=== PATIENT | female | born 1985 | race Caucasian/White ===

== ENCOUNTER 2020-08-25 15:32 | Emergency (ER) | payer OTHER, SELFPAY ==
[2020-08-25 16:18] VITALS: BP 130/80; PULSE 90; RESP 16; O2SAT 100; BMI 24.0
--- NOTE | 2020-08-25 16:44 | ED.ABDPAIN ---
HPI - Abdominal Pain General Chief Complaint: Abdominal Pain Stated Complaint: Abdominal pain Time Seen by Provider: 08/25/20 16:44 Source: patient Mode of arrival: ambulatory Limitations: no limitations History of Present Illness HPI narrative: Patient complaining of epigastric pain with nausea for last 1 week try to takes Prilosec for last 2 days without any help denies any urinary complaints very anxious on arrival no pain in the right side MD elicited complaint: abdominal pain Pertinent past history: gastritis Onset (ago): week(s) (1) Pain Consistency: constant Location: epigastric Severity: mild Quality: burning Radiation: none Exacerbating factors: eating Relieving factors: nothing Associated symptoms: nausea Related Data Previous Rx's Medication Instructions Recorded omeprazole 40 mg PO DAILY 28 Days #28 cap 08/25/20 sucralfate [Carafate] 1 g PO BID #60 tab 08/25/20 Allergies Allergy/AdvReac Type Severity Reaction Status Date / Time oxycodone [OXYCODONE] Allergy Unknown NAUSEA & Verified 08/25/20 16:21 VOMITING Review of Systems Review of Systems Constitutional : No Weight loss, No Fever, No Chills ENT/Mouth : No sore throat, No Rhinorrhea Eyes: No Eye Pain, No Swelling Cardiovascular : No Chest Pain, no palpitations Respiratory : No Cough, No Sputum, no shortness of breath Gastrointestinal : + Nausea, No Vomiting, No Diarrhea, + abdominal Pain, no black stools Genitourinary : No Dysuria, No Urinary Frequency Musculoskeletal : No joint pain, No Myalgias, No Joint Swelling Skin : No Skin Lesions, No rash Neuro : No Weakness, No Numbness, No Dizziness, No Headache Psych : No Anxiety/Panic, No Depression Heme/Lymph: No Bruising, No Lymphadenopathy Endocrine : No Polyuria, No Polydipsia All other systems reviewed and are negative Physical Exam Vital Signs: Vital Signs: Last Vital Signs Temp 98.8 F 08/25/20 17:58 Pulse 89 08/25/20 17:58 Resp 18 08/25/20 17:58 BP 152/84 H 08/25/20 17:58 Pulse Ox 96 08/25/20 17:58 Body Mass Index 24.0 Appearance: Alert. Oriented X3. No acute distress. Anxious Eyes: Pupils equal, round and reactive to light. ENT: Pharynx normal. Neck: Normal inspection. Neck supple. CVS: Normal heart rate and rhythm. Pulses normal. Respiratory: No respiratory distress. Breath sounds normal. Abdomen: Soft , mild tenderness epigastric area. Bowel sounds are present, no mass palpable, no CVA tenderness Skin: Skin warm and dry. Normal skin color. Normal skin turgor. Extremities: No lower extremity edema. Neuro: Oriented X 3. No motor deficit. No sensory deficit. Course Course Course Narrative: Patient has epigastric pain likely gastritis urine is negative for UTI bedside ultrasound was done by myself for gallbladder which was negative for gallstones awaiting for lipase and LFTs MDM - Abdominal Pain Differential Diagnosis Differential diagnosis: Likely abdominal pain and gastritis Medical Records Attestation: I reviewed the patient's medical records. Lab Data Attestation: I reviewed the patient's lab results. Result diagrams: 08/25/20 17:19 08/25/20 17:19 Labs: Lab Results 08/25/20 08/25/20 08/25/20 Range/Units 17:19 17:19 17:19 WBC 11.8 H (4.8-10.8) X10*3/uL RBC 4.52 (4.20-5.50) X10*6/uL Hgb 14.1 (12.0-16.0) g/dl Hct 41.7 (37-47) % MCV 92.3 (80-98) fL MCH 31.2 (27.0-33.0) pg MCHC 33.8 (31.0-35.0) g/dl RDW 11.9 (11.0-16.0) % Plt Count 275 (160-400) X10*3/uL MPV 10.3 (9.4-12.3) fL Immature Gran % (Auto) 0.3 (0.0-0.4) % Neut % (Auto) 80.1 H (45-73) % Lymph % (Auto) 14.7 L (20-40) % [place] % (Auto) 4.2 (2-11) % Eos % (Auto) 0.2 (0-4) % Baso % (Auto) 0.5 (0-2) % Lymph # (Auto) 1.7 (1.2-4.9) X10*3/uL [place] # (Auto) 0.5 (0.1-1.2) X10*3/uL Eos # (Auto) 0.0 (0.0-0.4) X10*3/uL Baso # (Auto) 0.1 (0.0-0.2) X10*3/uL Abs Immat Gran (auto) 0.03 (0.00-0.03) X10*3/uL Absolute Neuts (auto) 9.5 H (2.0-8.3) X10*3/uL Absolute Nucleated RBC 0.000 (0.0-0.012) X10*3/uL Nucleated RBC % (auto) 0.0 (0.0-0.2) /100WBC Sodium 141 (135-145) mmol/L Potassium 3.8 (3.3-5.1) mmol/L Chloride 107 (96-108) mmol/L Carbon Dioxide 23 (22-29) mmol/L Anion Gap 15 (12-20) BUN 11 (9-16) mg/dL Creatinine 0.74 (0.5-1.4) mg/dL Estim Creat Clear Calc 90.7 Estimated GFR > 60 Random Glucose 95 (60-115) mg/dL Calcium 9.5 (8.4-10.2) mg/dL Total Bilirubin 0.8 (0.0-1.0) mg/dL Direct Bilirubin 0.2 (0.0-0.5) mg/dL AST 18 (5-31) U/L ALT 34 H (0-31) U/L Alkaline Phosphatase 67 (39-117) U/L Total Protein 7.5 (6.5-8.0) g/dL Albumin 4.7 (3.5-5.0) g/dL Lipase 14 (8-78) U/L Urine Color YELLOW Urine Appearance HAZY Urine pH 7.0 (5.0-8.0) Ur Specific [place] 1.010 (1.005-1.025) Urine Protein NEG (NEG-TRACE) MG/DL Urine Glucose (UA) NEG (NEG) MG/DL Urine Ketones NEG (NEG) MG/DL Urine Blood NEG (NEG) Urine Nitrite NEG (NEG) Ur Leukocyte Esterase NEG (NEG) Urine Test NEGATIVE (NEGATIVE) Discharge Plan Discharge Clinical Impression: Gastritis Qualifiers: Gastritis type: unspecified gastritis Chronicity: acute Gastritis bleeding: without bleeding Qualified Code(s): K29.00 - Acute gastritis without bleeding Patient Disposition: Home, Self-Care Instructions: Gastritis (ED) Additional Instructions: Drink plenty of fluids avoid any fried food take Prilosec /Carafate as advised and follow with PCP if not better Prescriptions: New omeprazole 40 mg capsule,delayed release(DR/EC) 40 mg PO DAILY 28 Days Qty: 28 RF: 0 sucralfate [Carafate] 1 gram tablet 1 g PO BID Qty: 60 RF: 0 Interventions: ED Discharge Assessment Last Done: 08/25/20 18:40 Discharge Date/Time: 08/25/20 18:41 PMFSH Past Medical History Medical History Acid reflux Social History Social History Alcohol intake: never Smoking Status: Current every day smoker Smoked in Last 30 Days: Yes Use of substances other than those prescribed or required for medical reasons: No Advance Directives: No Advance Directives Information Provided: Yes
[2020-08-25] MEDS: Magnesium Hydrox/Alum Hydrox 30 ML ORAL.SUSP PO (17:22)
[2020-08-25 17:26] LABS: MANUAL DIFF FLAG NO
[2020-08-25 17:28] LABS: Basophils Absolute Auto 0.1 X10*3/uL (0.0-0.2); Basophils Percent Auto 0.5 % (0-2); Eosinophils Percent Auto 0.2 % (0-4); Hematocrit 41.7 % (37-47); Hemoglobin 14.1 g/dl (12.0-16.0); Imm Gran Abs Auto 0.03 X10*3/uL (0.00-0.03); Imm Gran Pct Auto 0.3 % (0.0-0.4); Lymphocytes Absolute Auto 1.7 X10*3/uL (1.2-4.9); Lymphocytes Percent Auto 14.7 % (20-40); Mean Corpuscular HGB Conc 33.8 g/dl (31.0-35.0); Mean Corpuscular Hemoglobin 31.2 pg (27.0-33.0); Mean Corpuscular Volume 92.3 fL (80-98); Mean Platelet Volume 10.3 fL (9.4-12.3); Monocytes Absolute Auto 0.5 X10*3/uL (0.1-1.2); Monocytes Percent Auto 4.2 % (2-11); Neutrophils Absolute Auto 9.5 X10*3/uL (2.0-8.3); Neutrophils Percent Auto 80.1 % (45-73); Platelet Count 275 X10*3/uL (160-400); Red Blood Count 4.52 X10*6/uL (4.20-5.50); Red Cell Distribution Width 11.9 % (11.0-16.0); White Blood Count 11.8 X10*3/uL (4.8-10.8)
[2020-08-25 17:31] LABS: Glucose Urine UA NEG (NEG); Leukocyte Esterase Urine NEG (NEG); Nitrite Urine NEG (NEG); Urine Blood NEG (NEG); Urine Ketones NEG (NEG); Urine Protein NEG (NEG-TRACE)
[2020-08-25 17:32] LABS: Appearance Urine HAZY; Color Urine YELLOW
[2020-08-25 17:33] LABS: UPreg QC Valid YES; Urine Pregnancy NEGATIVE (NEGATIVE)
[2020-08-25 17:58] VITALS: BP 152/84; PULSE 89; RESP 18; TEMP 37.1; O2SAT 96
[2020-08-25 17:59] LABS: Alanine Aminotransferase 34 U/L (0-31); Albumin Level 4.7 g/dL (3.5-5.0); Alkaline Phosphatase 67 U/L (39-117); Anion Gap 15 (12-20); Aspartate Amino Transferase 18 U/L (5-31); Bilirubin Direct 0.2 mg/dL (0.0-0.5); Bilirubin Total 0.8 mg/dL (0.0-1.0); Blood Urea Nitrogen 11 mg/dL (9-16); Calcium 9.5 mg/dL (8.4-10.2); Carbon Dioxide 23 mmol/L (22-29); Chloride 107 mmol/L (96-108); Creatinine Clr Calc Pharmacy 90.7; Estimated Glomerular Filt Rate > 60; Glucose Random 95 mg/dL (60-115); Lipase 14 U/L (8-78); Potassium 3.8 mmol/L (3.3-5.1); Sodium 141 mmol/L (135-145); Total Protein 7.5 g/dL (6.5-8.0)
--- NOTE | 2020-08-25 18:00 | PC.NURSE ---
labs drawn, pt medicated per order, vss, will continue to monitor.
== END 2020-08-25 18:41 | disposition home or self-care (01) ==
PROVIDERS: Emergency Provider Internal Medicine
DX: K29.00 Acute gastritis without bleeding (principal); R10.13 Epigastric pain; R11.0 Nausea; F17.200 Nicotine dependence, unspecified, uncomplicated; Z71.6 Tobacco abuse counseling; Z79.899 Other long term (current) drug therapy
CPT/HCPCS: 36415; 80048; 80076; 81003; 81025; 83690; 85025; 99283; 99284

== ENCOUNTER 2020-08-26 09:42 | Emergency (ER) | payer OTHER, SELFPAY ==
[2020-08-26 10:36] VITALS: BP 124/80; PULSE 83; RESP 18; TEMP 36.6; O2SAT 97; BMI 44.0
--- NOTE | 2020-08-26 10:59 | XR_ITS ---
EXAMINATION: XR CHEST CLINICAL INFORMATION: Chest pain COMPARISON: None TECHNIQUE: Frontal view of the chest was obtained. FINDINGS: No significant abnormality is noted involving the heart, lungs, mediastinum, bony thorax or soft tissues. XR/XR chest 1V IMPRESSION: Unremarkable chest examination.
--- NOTE | 2020-08-26 10:59 | ECG_ITS ---
Test Reason : CHEST PAIN Blood Pressure : / mmHG Vent. Rate : 065 BPM Atrial Rate : 065 BPM P-R Int : 138 ms QRS Dur : 088 ms QT Int : 408 ms P-R-T Axes : 023 008 033 degrees QTc Int : 424 ms Normal sinus rhythm Normal ECG When compared with ECG of 13-DEC-2010 21:58, No significant change was found Referred By: Jennifer Becker Electronically Signed By:ALLA TOWNSEND MD
--- NOTE | 2020-08-26 10:59 | US_ITS ---
EXAMINATION: US ABDOMEN COMPLETE CLINICAL INFORMATION: Upper abdominal pain, nausea and vomiting. COMPARISON: None TECHNIQUE: Real-time imaging of the abdominal viscera. FINDINGS: PANCREAS: Normal. ABDOMINAL AORTA: The proximal, mid, and distal segments are normal in caliber. INFERIOR VENA CAVA: Visualized portions are normal. LIVER: Normal. The liver is normal in size. The liver contour is normal. Parenchymal echogenicity is normal. No focal hepatic lesion. There is no intrahepatic biliary duct dilatation seen. GALLBLADDER: There is small amount of echogenic sludge but no echogenic stones seen. There is no wall thickening. Gallbladder wall measures 0.17 cm in thickness. COMMON BILE DUCT: Normal in caliber measuring 0.20 cm in diameter. RIGHT KIDNEY: No hydronephrosis. No renal calculi or focal parenchymal lesions. The kidney measures 10.8 cm in maximum dimension. There are several non-shadowing non-twinkle echogenic foci. LEFT KIDNEY: Normal. No hydronephrosis. No renal calculi or focal parenchymal lesions. The kidney measures 10.9 cm in maximum dimension. SPLEEN: The spleen measures 8.7 cm in maximum dimension. There is a small splenule measuring 0.94 x 1.0 x 1.1 cm. FREE FLUID: None. US/US abdomen complete IMPRESSION: 1. Small echogenic gallbladder sludge but no echogenic stones or wall thickening. 2. Tiny non-shadowing echogenic foci, ? vascular calcifications in right kidney. 3. Small accessory splenule as mentioned above.
[2020-08-26] MEDS: hydrOXYzine HCL 25 MG TABLET PO (11:37)
[2020-08-26] MEDS: Lidocaine HCl Viscous 2 % 15 ML SOLUTION MUCOUS MEM (11:37)
[2020-08-26] MEDS: Famotidine 20 MG TABLET PO (11:37)
[2020-08-26] MEDS: Magnesium Hydrox/Alum Hydrox 30 ML ORAL.SUSP PO (11:37)
[2020-08-26 11:47] VITALS: BP 114/72; PULSE 60; RESP 16; TEMP 36.4; O2SAT 100
[2020-08-26 11:53] LABS: Glucose Urine UA NEG (NEG); Leukocyte Esterase Urine NEG (NEG); Nitrite Urine NEG (NEG); Specific Gravity - Urine 1.025 (1.005-1.025); Urine Blood NEG (NEG); Urine Ketones NEG (NEG); Urine Protein NEG (NEG-TRACE)
[2020-08-26 11:54] LABS: Appearance Urine HAZY; Color Urine DARK YELLOW
--- NOTE | 2020-08-26 11:54 | ED.ABDPAIN ---
HPI - Abdominal Pain General Chief Complaint: Abdominal Pain Stated Complaint: ABD PAIN WEAKNESS Time Seen by Provider: 08/26/20 10:44 Source: patient Mode of arrival: ambulatory History of Present Illness HPI narrative: 35-year-old female with past medical history of GERD presenting to the ED complaining of sharp epigastric abdominal pain radiating to chest x2 weeks. Of note patient was seen in the ED last night for similar symptoms, had negative workup including bedside ultrasound, however reports pain worsening, with associated nausea and vomiting. Denies fever, chills, SOB, cough, dysuria/hematuria, urinary frequency MD elicited complaint: abdominal pain Related Data Previous Rx's Medication Instructions Recorded omeprazole 40 mg PO DAILY 28 Days #28 cap 08/25/20 sucralfate [Carafate] 1 g PO BID #60 tab 08/25/20 [id number]-[id number] 1 cap PO Q4-6H PRN #10 cap 08/26/20 [Fioricet] fluticasone propionate [Flonase 2 spray INTRANASAL DAILY #16 g 08/26/20 Allergy Relief] ondansetron HCl [Zofran] 4 mg PO Q8H PRN #10 tab 08/26/20 Allergies Allergy/AdvReac Type Severity Reaction Status Date / Time oxycodone [OXYCODONE] Allergy Unknown NAUSEA & Verified 08/25/20 16:21 VOMITING Review of Systems Review of Systems Constitutional: No Weight loss, No Fever, No Chills Cardiovascular: + Chest Pain, No SOB Respiratory: No Cough, No Wheezing, No Dyspnea Gastrointestinal: + Nausea, + Vomiting, No Diarrhea, No Constipation, + Abdominal pain Genitourinary: No irregular bleeding, No Dysuria, No Urinary Frequency, No Hematuria, No Flank Pain, No Urinary Flow Changes, No Hesitancy Musculoskeletal: No joint pain, No Myalgias, No Joint Swelling Skin: No Skin Lesions, No rash Neuro: No Weakness, No Numbness, No Paresthesias Yes all other systems are reviewed and are negative Physical Exam Vital Signs: Vital Signs: Last Vital Signs Temp 97.5 F 08/26/20 11:47 Pulse 60 08/26/20 11:47 Resp 16 08/26/20 11:47 BP 114/72 08/26/20 11:47 Pulse Ox 100 08/26/20 11:47 Body Mass Index 44.0 Const: General: cooperative, healthy appearing and anxious Orientation/consciousness: patient oriented x3 Limitations: no limitations HENMT: Head: Yes normal to inspection Ears: hearing grossly normal bilaterally General nose exam: Normal external nose present Face and sinus: Yes normal facial exam Eyes: General: appearance normal, both eyes and all related structures EOM: EOMs intact bilaterally Neck: Neck: Yes normal visual inspection and Yes no meningeal signs Resp: Effort & Inspection: normal respiratory effort Cardio: Rate: regular rate GI: Inspection: Yes normal to inspection Palpation (GI): Soft to palpation, Tenderness to palpation present (GI) in the epigastrum and in the LUQ, no guarding and not rigid : General: Yes no CVA tenderness Back/Spine/Pelvis: Back: no CVA tenderness Skin: Rashes: no rashes Wounds: no wounds Neuro: General: patient oriented x3 and no meningeal signs Gait exam (Neuro): Normal gait present Extrem: General: Yes normal to inspection Course Course Course Narrative: CXR unremarkable Labs and UA unremarkable. 1524- US abdomen complete IMPRESSION: 1. Small echogenic gallbladder sludge but no echogenic stones or wall thickening. 2. Tiny non-shadowing echogenic foci, ? vascular calcifications in right kidney. 3. Small accessory splenule as mentioned above. >> will initiate patient on low-fat diet to follow-up with surgery outpatient MDM - Abdominal Pain MDM Narrative Medical decision making narrative: 35-year-old female with past medical history of GERD presenting to the ED complaining of sharp epigastric abdominal pain radiating to chest x2 weeks. On exam VSS, anxious, tearful, abdomen soft with epigastric soft LUQ TTP, no rebound or guarding. Concern for pancreatitis/cholecystitis/cholelithiasis vs ? ACS although symptoms atypical. Low concern for PE/pneumonia. Low concern for diverticulitis/appendicitis Plan: Labs, UA, official abdomen ultrasound, CXR, re-evaluate Medical Records Attestation: I reviewed the patient's medical records. Lab Data Attestation: I reviewed the patient's lab results. Result diagrams: 08/26/20 11:54 08/26/20 11:54 Labs: Lab Results 08/26/20 08/26/20 08/26/20 Range/Units 11:40 11:54 11:54 WBC 7.4 (4.8-10.8) X10*3/uL RBC 4.32 (4.20-5.50) X10*6/uL Hgb 13.4 (12.0-16.0) g/dl Hct 40.3 (37-47) % MCV 93.3 (80-98) fL MCH 31.0 (27.0-33.0) pg MCHC 33.3 (31.0-35.0) g/dl RDW 12.0 (11.0-16.0) % Plt Count 282 (160-400) X10*3/uL MPV 10.4 (9.4-12.3) fL Immature Gran % (Auto) 0.1 (0.0-0.4) % Neut % (Auto) 69.4 (45-73) % Lymph % (Auto) 23.7 (20-40) % [place] % (Auto) 5.4 (2-11) % Eos % (Auto) 0.7 (0-4) % Baso % (Auto) 0.7 (0-2) % Lymph # (Auto) 1.8 (1.2-4.9) X10*3/uL [place] # (Auto) 0.4 (0.1-1.2) X10*3/uL Eos # (Auto) 0.1 (0.0-0.4) X10*3/uL Baso # (Auto) 0.1 (0.0-0.2) X10*3/uL Abs Immat Gran (auto) 0.01 (0.00-0.03) X10*3/uL Absolute Neuts (auto) 5.1 (2.0-8.3) X10*3/uL Absolute Nucleated RBC 0.000 (0.0-0.012) X10*3/uL Nucleated RBC % (auto) 0.0 (0.0-0.2) /100WBC Hold Blue Top Sodium 138 (135-145) mmol/L Potassium 4.2 (3.3-5.1) mmol/L Chloride 104 (96-108) mmol/L Carbon Dioxide 25 (22-29) mmol/L Anion Gap 13 (12-20) BUN 10 (9-16) mg/dL Creatinine 0.75 (0.5-1.4) mg/dL Estim Creat Clear Calc 134.6 Estimated GFR > 60 Random Glucose 102 (60-115) mg/dL Calcium 9.1 (8.4-10.2) mg/dL Magnesium 2.4 (1.6-2.6) mg/dL Total Bilirubin 0.9 (0.0-1.0) mg/dL Direct Bilirubin 0.2 (0.0-0.5) mg/dL AST 18 (5-31) U/L ALT 31 (0-31) U/L Alkaline Phosphatase 61 (39-117) U/L Troponin I High Sens (<3.5-17.0) ng/L Total Protein 7.0 (6.5-8.0) g/dL Albumin 4.5 (3.5-5.0) g/dL Lipase (8-78) U/L Urine Color DARK YELLOW Urine Appearance HAZY Urine pH 6.0 (5.0-8.0) Ur Specific [place] 1.025 (1.005-1.025) Urine Protein NEG (NEG-TRACE) MG/DL Urine Glucose (UA) NEG (NEG) MG/DL Urine Ketones NEG (NEG) MG/DL Urine Blood NEG (NEG) Urine Nitrite NEG (NEG) Ur Leukocyte Esterase NEG (NEG) 08/26/20 08/26/20 08/26/20 Range/Units 11:54 11:54 11:54 WBC (4.8-10.8) X10*3/uL RBC (4.20-5.50) X10*6/uL Hgb (12.0-16.0) g/dl Hct (37-47) % MCV (80-98) fL MCH (27.0-33.0) pg MCHC (31.0-35.0) g/dl RDW (11.0-16.0) % Plt Count (160-400) X10*3/uL MPV (9.4-12.3) fL Immature Gran % (Auto) (0.0-0.4) % Neut % (Auto) (45-73) % Lymph % (Auto) (20-40) % [place] % (Auto) (2-11) % Eos % (Auto) (0-4) % Baso % (Auto) (0-2) % Lymph # (Auto) (1.2-4.9) X10*3/uL [place] # (Auto) (0.1-1.2) X10*3/uL Eos # (Auto) (0.0-0.4) X10*3/uL Baso # (Auto) (0.0-0.2) X10*3/uL Abs Immat Gran (auto) (0.00-0.03) X10*3/uL Absolute Neuts (auto) (2.0-8.3) X10*3/uL Absolute Nucleated RBC (0.0-0.012) X10*3/uL Nucleated RBC % (auto) (0.0-0.2) /100WBC Hold Blue Top SEE NOTE Sodium (135-145) mmol/L Potassium (3.3-5.1) mmol/L Chloride (96-108) mmol/L Carbon Dioxide (22-29) mmol/L Anion Gap (12-20) BUN (9-16) mg/dL Creatinine (0.5-1.4) mg/dL Estim Creat Clear Calc Estimated GFR Random Glucose (60-115) mg/dL Calcium (8.4-10.2) mg/dL Magnesium (1.6-2.6) mg/dL Total Bilirubin (0.0-1.0) mg/dL Direct Bilirubin (0.0-0.5) mg/dL AST (5-31) U/L ALT (0-31) U/L Alkaline Phosphatase (39-117) U/L Troponin I High Sens < 3.5 (<3.5-17.0) ng/L Total Protein (6.5-8.0) g/dL Albumin (3.5-5.0) g/dL Lipase 13 (8-78) U/L Urine Color Urine Appearance Urine pH (5.0-8.0) Ur Specific [place] (1.005-1.025) Urine Protein (NEG-TRACE) MG/DL Urine Glucose (UA) (NEG) MG/DL Urine Ketones (NEG) MG/DL Urine Blood (NEG) Urine Nitrite (NEG) Ur Leukocyte Esterase (NEG) ECG Data Attestation: I personally reviewed and interpreted this ECG as follows: ECG interpretation date: 08/26/20 ECG interpretation time: 11:39 Interpretation: EKG normal sinus rhythm. Rate of 65. No STEMI. Nonischemic patent Discharge Plan Discharge Clinical Impression: Gallbladder sludge Abdominal pain Qualifiers: Abdominal location: unspecified location Qualified Code(s): R10.9 - Unspecified abdominal pain Patient Disposition: Home, Self-Care Instructions: Low Fat Diet (ED) Additional Instructions: Your blood work was unremarkable today in the ED. Your ultrasound did show a small amount of gallbladder sludge, however no inflammation or stones. You need to follow-up with a general surgeon outpatient. You need to practice a low-fat diet. Zofran as antinausea medication, take as needed. Flonase help decongest her sinuses. In addition Fioricet is a headache pain medication, take as needed If your abdominal pain persists or worsens, becomes unbearable, you are unable to eat or drink return to the ED immediately Prescriptions: New ondansetron HCl [Zofran] 4 mg tablet 4 mg PO Q8H PRN (Reason: nausea and vomiting) Qty: 10 RF: 0 [id number]-ryegobrtsmlzd-[id number] [Fioricet] 50-300-40 mg capsule 1 cap PO Q4-6H PRN (Reason: pain) Qty: 10 RF: 0 fluticasone propionate [Flonase Allergy Relief] 50 mcg/actuation spray,suspension 2 spray intranasal DAILY Qty: 16 RF: 0 No Action omeprazole 40 mg capsule,delayed release(DR/EC) 40 mg PO DAILY 28 Days Qty: 28 RF: 0 sucralfate [Carafate] 1 gram tablet 1 g PO BID Qty: 60 RF: 0 Referrals: Donavan Younger MD [Physician] - 5 days Radha Urbina MD [Physician] - 1 week Physician,None [Primary Care Provider] - 2 days [facility] Past Medical History Attestation statement: The following information was validated with the patient. Medical History Acid reflux Social History Social History Alcohol intake: never Smoking Status: Current every day smoker Advance Directives: No Advance Directives Information Provided: Yes
[2020-08-26 12:00] LABS: MANUAL DIFF FLAG NO
[2020-08-26 12:01] LABS: Basophils Absolute Auto 0.1 X10*3/uL (0.0-0.2); Basophils Percent Auto 0.7 % (0-2); Eosinophils Absolute Auto 0.1 X10*3/uL (0.0-0.4); Eosinophils Percent Auto 0.7 % (0-4); Hematocrit 40.3 % (37-47); Hemoglobin 13.4 g/dl (12.0-16.0); Imm Gran Abs Auto 0.01 X10*3/uL (0.00-0.03); Imm Gran Pct Auto 0.1 % (0.0-0.4); Lymphocytes Absolute Auto 1.8 X10*3/uL (1.2-4.9); Lymphocytes Percent Auto 23.7 % (20-40); Mean Corpuscular HGB Conc 33.3 g/dl (31.0-35.0); Mean Corpuscular Volume 93.3 fL (80-98); Mean Platelet Volume 10.4 fL (9.4-12.3); Monocytes Absolute Auto 0.4 X10*3/uL (0.1-1.2); Monocytes Percent Auto 5.4 % (2-11); Neutrophils Absolute Auto 5.1 X10*3/uL (2.0-8.3); Neutrophils Percent Auto 69.4 % (45-73); Platelet Count 282 X10*3/uL (160-400); Red Blood Count 4.32 X10*6/uL (4.20-5.50); White Blood Count 7.4 X10*3/uL (4.8-10.8)
[2020-08-26 12:22] LABS: Lipase 13 U/L (8-78)
[2020-08-26 12:25] LABS: Alanine Aminotransferase 31 U/L (0-31); Albumin Level 4.5 g/dL (3.5-5.0); Alkaline Phosphatase 61 U/L (39-117); Aspartate Amino Transferase 18 U/L (5-31); Bilirubin Direct 0.2 mg/dL (0.0-0.5); Bilirubin Total 0.9 mg/dL (0.0-1.0); Blood Urea Nitrogen 10 mg/dL (9-16); Calcium 9.1 mg/dL (8.4-10.2); Creatinine Clr Calc Pharmacy 134.6; Estimated Glomerular Filt Rate > 60; Glucose Random 102 mg/dL (60-115); Magnesium 2.4 mg/dL (1.6-2.6)
[2020-08-26 12:27] LABS: Troponin-I High Sensitivity < 3.5 ng/L (<3.5-17.0)
[2020-08-26 12:45] LABS: Anion Gap 13 (12-20); Carbon Dioxide 25 mmol/L (22-29); Chloride 104 mmol/L (96-108); Potassium 4.2 mmol/L (3.3-5.1); Sodium 138 mmol/L (135-145)
[2020-08-26] MEDS: Acetaminophen 325 MG TABLET 650 MG PO (12:52)
== END 2020-08-26 15:36 | disposition home or self-care (01) ==
PROVIDERS: Physician Assistant; Emergency Provider Emergency Medicine
DX: R10.9 Unspecified abdominal pain (principal); K21.9 Gastro-esophageal reflux disease without esophagitis
CPT/HCPCS: 36415; 71045; 76700; 80048; 80076; 81003; 83690; 83735; 84484; 85025; 93005; 99283; 99284

== ENCOUNTER → 2020-08-28 13:40 | Outpatient (BNVA) | payer OTHER, SELFPAY | PROVIDERS: Visit Provider Surgery | DX: R10.10 Upper abdominal pain, unspecified (principal) | CPT/HCPCS: 99202 ==

== ENCOUNTER 2020-09-13 14:51 | Outpatient (REF) | payer OTHER, SELFPAY ==
--- NOTE | ~2020-09-13 | CT_ITS ---
EXAMINATION: CT ABDOMEN WITH CONTRAST CLINICAL INFORMATION: Upper abdominal pain COMPARISON: Previous abdominal ultrasound August [address] of the abdomen and pelvis May 2016 TECHNIQUE: Contiguous axial thin section helical images of the abdomen were performed following the administration of oral contrast and 85 mL of Omnipaque 350 intravenous contrast. The data set was reformatted in the coronal and sagittal planes and reviewed on an independent workstation. This CT examination was performed using dose optimization techniques as appropriate, variously including the following: *Automated exposure control *Adjustment of mA and/or kV according to patient size (this includes techniques or standardized protocols for targeted exams where dose is matched to indication/reason for exam; i.e. extremities or head) *Use of iterative reconstruction technique DLP: 117 mGy-cm FINDINGS: LUNG BASES: Clear LIVER, GALLBLADDER, AND BILIARY TREE: Unremarkable PANCREAS: Unremarkable SPLEEN: Unremarkable ADRENAL GLANDS AND KIDNEYS: Unremarkable BOWEL LOOPS: Unremarkable. The visualized appendix is unremarkable. No ascites is seen. There is a small umbilical hernia containing fat. LYMPH NODES: There are small, small bowel mesentery lymph nodes. No enlarged lymph nodes are seen. VASCULAR: There is evidence of mild atherosclerotic disease. The left ovarian vein appears prominent. BONES: Unremarkable CT/CT abdomen w con IMPRESSION: Mild atherosclerotic disease. Small umbilical hernia containing fat. Prominent left ovarian vein.
[2020-09-13] MEDS: iohexoL 350 MG/ML 100 ML INFUS..BTL IV (15:20)
== END 2020-09-13 14:52 | disposition home or self-care (01) ==
LOC: HO.CT 14:51
PROVIDERS: Visit Provider Surgery
DX: R10.10 Upper abdominal pain, unspecified (principal)
CPT/HCPCS: 74160; Q9967

== ENCOUNTER → 2020-09-19 14:58 | Outpatient (BNVA) | payer OTHER, SELFPAY | PROVIDERS: Visit Provider Surgery | DX: R10.10 Upper abdominal pain, unspecified (principal) | CPT/HCPCS: 99212 ==

== ENCOUNTER 2021-02-20 13:24 | Emergency (ER) | payer OTHER, SELFPAY ==
--- NOTE | ~2021-02-20 | US_ITS ---
EXAMINATION: US ABDOMEN LIMITED CLINICAL INFORMATION: Right upper quadrant pain. COMPARISON: None TECHNIQUE: Real-time imaging of the right upper quadrant abdominal viscera. FINDINGS: PANCREAS: Normal. LIVER: Normal. The liver is normal in size. The liver contour is normal. Parenchymal echogenicity is normal. No focal hepatic lesion. There is no intrahepatic biliary duct dilatation seen. GALLBLADDER: Normal. The gallbladder is physiologically distended without evidence of stones, sludge, polyps, wall thickening or pericholecystic fluid. COMMON BILE DUCT: Normal in caliber measuring 0.4 cm in diameter. RIGHT KIDNEY: Normal. No hydronephrosis. No renal calculi or focal parenchymal lesions. The kidney measures 10.9 cm in maximum dimension. FREE FLUID: None. US/US abdomen limited IMPRESSION: Unremarkable examination.
[2021-02-20 13:42] VITALS: BP 138/114; PULSE 114; RESP 16; TEMP 36.6; O2SAT 97; BMI 22.1
--- NOTE | 2021-02-20 17:25 | ED_ITS ---
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 States she is unable to sleep and focus and feels very restless because of this. She additionally reports that she has history of cholelithiasis and also has been getting some mild right-sided upper abdominal pain for the past day. States burning like sensation epigastrium and pain in the right upper quadrant. There is no associated nausea or vomiting or diarrhea. No fever. Related Data Previous Rx's Medication Instructions Recorded omeprazole 40 mg capsule,delayed 40 mg PO DAILY 28 Days #28 cap 08/25/20 release sucralfate 1 gram tablet (Carafate) 1 g PO BID #60 tab 08/25/20 dyqpfusghz-vomrqpwjrjydz-hrjjoitd 1 cap PO Q4-6H PRN #10 cap 08/26/20 50 mg-300 mg-40 mg capsule (Fioricet) fluticasone propionate 50 2 spray INTRANASAL DAILY #16 g 08/26/20 mcg/actuation nasal spray,suspension (Flonase Allergy Relief) ondansetron HCl 4 mg tablet 4 mg PO Q8H PRN #10 tab 08/26/20 (Zofran) omeprazole magnesium 20 mg 40 mg PO DAILY #30 tab 09/11/20 tablet,delayed release (Prilosec OTC) hydroxyzine pamoate 25 mg capsule 25 mg PO BEDTIME PRN #14 cap 02/20/21 omeprazole 20 mg capsule,delayed 20 mg PO DAILY #14 cap 02/20/21 release Allergies Allergy/AdvReac Type Severity Reaction Status Date / Time oxycodone [OXYCODONE] Allergy Unknown NAUSEA & Verified 08/28/20 13:48 VOMITING Review of Systems Review of Systems Constitutional: No Weight loss, No Fever, No Chills, No Night Sweats, No Fatigue, No Malaise ENT/Mouth: No Hearing loss, No Ear Pain, No Nasal Congestion, No Sinus Pain, No Hoarseness, No sore throat, No Rhinorrhea, No Swallowing Difficulty Eyes: No Eye Pain, No Swelling, No Redness, No Foreign Body, No Discharge, No Vision Changes Cardiovascular: No Chest Pain, No SOB, No Dyspnea on Exertion, No Orthopnea, No Edema, No Palpitations Respiratory: No Cough, No Sputum, No Wheezing, No Smoke Exposure, No Dyspnea Gastrointestinal: No Nausea, No Vomiting, No Diarrhea, No Constipation, + abdominal Pain, No Hematochezia, No Melena Genitourinary: no irregular bleeding, No Dysuria, No Urinary Frequency, No Hematuria, No Urinary Incontinence, No Urgency, No Flank Pain, No Urinary Flow Changes, No Hesitancy Musculoskeletal: No joint pain, No Myalgias, No Joint Swelling Skin: No Skin Lesions, No rash Neuro: No Weakness, No Numbness, No Paresthesias, No Loss of Consciousness, No Dizziness, No Headache Psych: + Anxiety/Panic, No Depression, No SI/HI/AH/VH, No Social Issues Heme/Lymph: No Bruising, No Bleeding,No Lymphadenopathy Endocrine: No Polyuria, No Polydipsia, No Temperature Intolerance Physical Exam Vital Signs: Vital Signs: Last Vital Signs Temp 97.9 F 02/20/21 18:29 Pulse 65 02/20/21 18:29 Resp 15 02/20/21 18:29 BP 106/62 02/20/21 18:29 Pulse Ox 100 02/20/21 18:29 Body Mass Index 22.1 Const: General: cooperative and healthy appearing; No acute distress or intoxicated appearing Nutritional Appearance: average body habitus Orientation/consciousness: patient oriented x3 HENMT: Head: Yes normal to inspection Ears: hearing grossly normal bilaterally Eyes: General: appearance normal, both eyes and all related structures Visual Garcia: normal visual garcia by confrontation Neck: Neck: Yes normal visual inspection, No positive Brudzinski's sign, No positive Kernig's sign and No tender Thyroid: Thyroid normal Chest: Chest palpation & inspection: normal inspection of the chest Resp: Effort & Inspection: normal respiratory effort Cardio: Jugular venous distension: no JVD GI: Inspection: Yes normal to inspection Palpation (GI): Soft to palpation, nontender, no guarding, not rigid, hepatosplenomegaly present and no hepatosplenomegaly Percussion: Yes normal to percussion Auscultation: normal bowel sounds : General: Yes no CVA tenderness Back/Spine/Pelvis: Back: no CVA tenderness Skin: General skin exam: no rashes or lesions noted Neuro: General: patient oriented x3 Extrem: General: Yes normal to inspection Course Reevaluation(s) Reevaluation #1: Exam overall anxious type recent stressors with housing situation. Offers be to care team. Otherwise labs overall reassuring. Abdominal exam without evidence of acute abdomen. Ultrasound unremarkable. Will discharge home for short course hydroxyzine and omeprazole. Will follow-up on outpatient basis closed with her doctor. She is requesting a letter for her housing I told her she needs to follow up with her primary care doctor for this. MDM - Abdominal Pain Medical Records Attestation: I reviewed the patient's medical records. Lab Data Attestation: I reviewed the patient's lab results. Result diagrams: 02/20/21 17:37 02/20/21 17:37 Labs: Lab Results 02/20/21 02/20/21 Range/Units 17:37 17:37 WBC 10.2 (4.8-10.8) X10*3/uL RBC 4.72 (4.20-5.50) X10*6/uL Hgb 14.6 (12.0-16.0) g/dl Hct 43.3 (37-47) % MCV 91.7 (80-98) fL MCH 30.9 (27.0-33.0) pg MCHC 33.7 (31.0-35.0) g/dl RDW 12.1 (11.0-16.0) % Plt Count 313 (160-400) X10*3/uL MPV 10.4 (9.4-12.3) fL Immature Gran % (Auto) 0.3 (0.0-0.4) % Neut % (Auto) 72.8 (45-73) % Lymph % (Auto) 21.5 (20-40) % [place] % (Auto) 4.8 (2-11) % Eos % (Auto) 0.2 (0-4) % Baso % (Auto) 0.4 (0-2) % Lymph # (Auto) 2.2 (1.2-4.9) X10*3/uL [place]ayson # (Auto) 0.5 (0.1-1.2) X10*3/uL Eos # (Auto) 0.0 (0.0-0.4) X10*3/uL Baso # (Auto) 0.0 (0.0-0.2) X10*3/uL Abs Immat Gran (auto) 0.03 (0.00-0.03) X10*3/uL Absolute Neuts (auto) 7.4 (2.0-8.3) X10*3/uL Absolute Nucleated RBC 0.000 (0.0-0.012) X10*3/uL Nucleated RBC % (auto) 0.0 (0.0-0.2) /100WBC Sodium 140 (135-145) mmol/L Potassium 4.4 (3.3-5.1) mmol/L Chloride 106 (96-108) mmol/L Carbon Dioxide 23 (22-29) mmol/L Anion Gap 15 (12-20) BUN 7 L (9-16) mg/dL Creatinine 0.73 (0.5-1.4) mg/dL Estim Creat Clear Calc 91.0 Estimated GFR > 60 Random Glucose 91 (60-115) mg/dL Calcium 10.3 H D (8.4-10.2) mg/dL Total Bilirubin 0.8 (0.0-1.0) mg/dL Direct Bilirubin 0.3 (0.0-0.5) mg/dL AST 13 (5-31) U/L ALT 14 (0-31) U/L Alkaline Phosphatase 63 (39-117) U/L Total Protein 7.6 (6.5-8.0) g/dL Albumin 4.8 (3.5-5.0) g/dL Imaging Data ABD US: Radiologist's impression: [address] [address] Ultrasound Report Signed Patient: Cara Mascorro MR#: [id number] : 1985 Acct:[id number] Age/Sex: 36 / F ADM Date: 02/20/21 Loc: .ED Attending Dr: Ordering Physician: Jakob Ricardo [employer] Date of Service: 02/20/21 Procedure(s): US abdomen limited Accession Number(s): [id number] cc: Jakob Ricardo [employer]~ EXAMINATION: US ABDOMEN LIMITED CLINICAL INFORMATION: Right upper quadrant pain. COMPARISON: None TECHNIQUE: Real-time imaging of the right upper quadrant abdominal viscera. FINDINGS: PANCREAS: Normal. LIVER: Normal. The liver is normal in size. The liver contour is normal. Parenchymal echogenicity is normal. No focal hepatic lesion. There is no intrahepatic biliary duct dilatation seen. GALLBLADDER: Normal. The gallbladder is physiologically distended without evidence of stones, sludge, polyps, wall thickening or pericholecystic fluid. COMMON BILE DUCT: Normal in caliber measuring 0.4 cm in diameter. RIGHT KIDNEY: Normal. No hydronephrosis. No renal calculi or focal parenchymal lesions. The kidney measures 10.9 cm in maximum dimension. FREE FLUID: None. US/US abdomen limited IMPRESSION: Unremarkable examination. Dictated By: MARY FARLEY MD Signed By: <Electronically signed by MARY FARLEY MD in OV> 02/20/21 1831 DD/ 1724 TD/TT:? [employer]rer: Discharge Plan Discharge Clinical Impression: Acute upper abdominal pain, Anxiety Patient Disposition: Home, Self-Care Instructions: Abdominal Pain (ED), Anxiety (ED) Additional Instructions: Drink plenty fluids [place] diet Avoid heavy greasy foods Avoid caffeine/caffeinated drinks Avoid stressful situations Taking medications prescribed Follow up with her primary care doctor I discussed Return if any concerns or worsening symptoms Thank you Prescriptions: New hydroxyzine pamoate 25 mg capsule 25 mg PO BEDTIME PRN (Reason: Anxiety/ sleep) Qty: 14 RF: 1 omeprazole 20 mg capsule,delayed release(DR/EC) 20 mg PO DAILY Qty: 14 RF: 0 No Action omeprazole magnesium [Prilosec OTC] 20 mg tablet,delayed release (DR/EC) 40 mg PO DAILY Qty: 30 RF: 0 ondansetron HCl [Zofran] 4 mg tablet 4 mg PO Q8H PRN (Reason: nausea and vomiting) Qty: 10 RF: 0 rgofzhubdm-haqhetwdxoitn-hfcj [Fioricet] 50-300-40 mg capsule 1 cap PO Q4-6H PRN (Reason: pain) Qty: 10 RF: 0 fluticasone propionate [Flonase Allergy Relief] 50 mcg/actuation spray,suspension 2 spray intranasal DAILY Qty: 16 RF: 0 omeprazole 40 mg capsule,delayed release(DR/EC) 40 mg PO DAILY 28 Days Qty: 28 RF: 0 sucralfate [Carafate] 1 gram tablet 1 g PO BID Qty: 60 RF: 0 Referrals: ED Physician,Generic [Emergency Provider] - 2 days (Your primary care) PMFSH Past Medical History Medical History Acid reflux Upper abdominal pain Social History Social History Alcohol intake: never Smoked in Last 30 Days: No Use of substances other than those prescribed or required for medical reasons: No Advance Directives: No Advance Directives Information Provided: No Patient : No
[2021-02-20 17:43] LABS: MANUAL DIFF FLAG NO
[2021-02-20 17:45] LABS: Basophils Percent Auto 0.4 % (0-2); Eosinophils Percent Auto 0.2 % (0-4); Hematocrit 43.3 % (37-47); Hemoglobin 14.6 g/dl (12.0-16.0); Imm Gran Abs Auto 0.03 X10*3/uL (0.00-0.03); Imm Gran Pct Auto 0.3 % (0.0-0.4); Lymphocytes Absolute Auto 2.2 X10*3/uL (1.2-4.9); Lymphocytes Percent Auto 21.5 % (20-40); Mean Corpuscular HGB Conc 33.7 g/dl (31.0-35.0); Mean Corpuscular Hemoglobin 30.9 pg (27.0-33.0); Mean Corpuscular Volume 91.7 fL (80-98); Mean Platelet Volume 10.4 fL (9.4-12.3); Monocytes Absolute Auto 0.5 X10*3/uL (0.1-1.2); Monocytes Percent Auto 4.8 % (2-11); Neutrophils Absolute Auto 7.4 X10*3/uL (2.0-8.3); Neutrophils Percent Auto 72.8 % (45-73); Platelet Count 313 X10*3/uL (160-400); Red Blood Count 4.72 X10*6/uL (4.20-5.50); Red Cell Distribution Width 12.1 % (11.0-16.0); White Blood Count 10.2 X10*3/uL (4.8-10.8)
[2021-02-20] MEDS: 0.9 % Sodium Chloride 1,000 ML 999 ML IV (17:50)
[2021-02-20] MEDS: hydrOXYzine HCL 25 MG TABLET PO (17:50)
[2021-02-20] MEDS: Acetaminophen 325 MG TABLET 650 MG PO (17:50)
[2021-02-20 18:09] LABS: Alanine Aminotransferase 14 U/L (0-31); Albumin Level 4.8 g/dL (3.5-5.0); Alkaline Phosphatase 63 U/L (39-117); Anion Gap 15 (12-20); Aspartate Amino Transferase 13 U/L (5-31); Bilirubin Direct 0.3 mg/dL (0.0-0.5); Bilirubin Total 0.8 mg/dL (0.0-1.0); Blood Urea Nitrogen 7 mg/dL (9-16); Calcium 10.3 mg/dL (8.4-10.2); Carbon Dioxide 23 mmol/L (22-29); Chloride 106 mmol/L (96-108); Estimated Glomerular Filt Rate > 60; Glucose Random 91 mg/dL (60-115); Potassium 4.4 mmol/L (3.3-5.1); Sodium 140 mmol/L (135-145); Total Protein 7.6 g/dL (6.5-8.0)
[2021-02-20 18:29] VITALS: BP 106/62; PULSE 65; RESP 15; TEMP 36.6; O2SAT 100
== END 2021-02-20 20:00 | disposition home or self-care (01) ==
PROVIDERS: Emergency Provider Internal Medicine
DX: R10.10 Upper abdominal pain, unspecified (principal); F41.1 Generalized anxiety disorder; F43.0 Acute stress reaction; Z79.899 Other long term (current) drug therapy
CPT/HCPCS: 36415; 76705; 80048; 80076; 85025; 99285

== ENCOUNTER 2021-03-23 19:51 | Emergency (ER) | payer OTHER, SELFPAY ==
[2021-03-23 20:05] VITALS: BP 149/94; PULSE 90; RESP 18; TEMP 36.8; O2SAT 100; BMI 21.8
[2021-03-23 21:36] VITALS: BP 148/88; PULSE 89; RESP 20; TEMP 36.8; O2SAT 100
--- NOTE | 2021-03-23 22:21 | ED_ITS ---
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 as well as skin cancer. Patient expresses concern that she may have ?caught something? from the patient. She denies any fever, chills, chest pain/palpitations and denies nausea, vomiting, urinary symptoms. Patient denies any prior medical history and does not have a primary care provider. Related Data Previous Rx's Medication Instructions Recorded omeprazole 40 mg capsule,delayed 40 mg PO DAILY 28 Days #28 cap 08/25/20 release sucralfate 1 gram tablet (Carafate) 1 g PO BID #60 tab 08/25/20 gflmyxasgz-niaghrifnfkwa-binwejrw 1 cap PO Q4-6H PRN #10 cap 08/26/20 50 mg-300 mg-40 mg capsule (Fioricet) fluticasone propionate 50 2 spray INTRANASAL DAILY #16 g 08/26/20 mcg/actuation nasal spray,suspension (Flonase Allergy Relief) ondansetron HCl 4 mg tablet 4 mg PO Q8H PRN #10 tab 08/26/20 (Zofran) omeprazole magnesium 20 mg 40 mg PO DAILY #30 tab 09/11/20 tablet,delayed release (Prilosec OTC) hydroxyzine pamoate 25 mg capsule 25 mg PO BEDTIME PRN #14 cap 02/20/21 omeprazole 20 mg capsule,delayed 20 mg PO DAILY #14 cap 02/20/21 release Allergies Allergy/AdvReac Type Severity Reaction Status Date / Time oxycodone [OXYCODONE] Allergy Unknown NAUSEA & Verified 03/23/21 20:05 VOMITING Review of Systems Review of Systems: Pertinent positives and negatives as stated in HPI 10 point review of systems is otherwise negative. PMFSH Past Medical History Source: nursing notes reviewed Medical History Acid reflux Upper abdominal pain Social History Social History Alcohol intake: never Advance Directives: No Advance Directives Information Provided: Yes Patient : No Physical Exam Vital Signs: Vital Signs: Last Vital Signs Temp 98.2 F 03/23/21 21:36 Pulse 89 03/23/21 21:36 Resp 20 03/23/21 21:36 BP 148/88 H 03/23/21 21:36 Pulse Ox 100 03/23/21 21:36 Body Mass Index 21.8 VITAL SIGNS: Reviewed. GENERAL: Well developed, well nourished, anxious HEAD: Normocephalic/atraumatic, EYES: PERRLA, EOMI intact without pain, no nystagmus/pallor/icterus noted EARS: Ext canals without abnormality, TMs non-bulging and non-erythematous, posterior right ear there is small enlarged lymph node subcentimeter NOSE: Nares patent bilateral OROPHARYNX: no oral lesions noted, posterior pharynx clear and non-erythematous without noted tonsillar enlargement/erythema/exudates NECK: Supple, no adenopathy LUNGS: Normal breath sounds. No adventitious sounds or accessory muscle use. SpO2<100> CARDIOVASCULAR: Regular rate and rhythm without noted murmurs ABDOMEN: Soft, non-tender, non-distended with bowel sounds. SKIN: Inspection of the skin reveals no rashes, questionable mosquito bites although present on back and all 4 extremities NEUROLOGIC: Alert and oriented x 4. PSYCH: Anxious Course Course Course Narrative: 36-year-old female with history and clinical presentation consistent with small enlarged lymph node at posterior auricle without erythema or induration and scattered areas on body are inconsistent with hives/rash and appear to be more like mosquito bites with the exception that they are present on abdomen/back/chest with possibility of scabies although distribution is inconsistent. Will provide patient with medication for her headache and prescribed medication for empiric treatment of possible scabies versus lice Discharge Plan Discharge Clinical Impression: Body lice, Head lice Patient Disposition: Home, Self-Care Instructions: Body Lice (ED), Pediculosis (ED), Permethrin (On the skin) Additional Instructions: Recommend using [id number]-qpdblrv Tylenol/ibuprofen as needed for headache control. You need to follow-up with a primary care provider for re-evaluation and further outpatient management. * Machine wash and dry clothing, bed linens, and other items that the infested person wore or used during the 2 days before treatment using the hot water (130?F) laundry cycle and the high heat drying cycle. Clothing and items that are not washable can be dry?cleanedORsealed in a plastic bag and stored for 2 weeks. * Soak baez and brushes in hot water (at least 130?F) for 5?10 minutes. * Vacuum the floor and furniture, particularly where the infested person sat or lay. However, the risk of getting infested by a louse that has fallen onto a rug or carpet or furniture is very small. Head lice survive less than 1?2 days if they fall off a person and cannot feed; nits cannot [place] and usually within a week if they are not kept at the same temperature as that found close to the human scalp. Spending much time and money on housecleaning activities is not necessary to avoid reinfestation by lice or nits that may have fallen off the head or crawled onto furniture or clothing. * * Wpyu-oue-vuvlnof 1% permethrin. Use as directed on the outside packaging. Prescriptions: No Action omeprazole magnesium [Prilosec OTC] 20 mg tablet,delayed release (DR/EC) 40 mg PO DAILY Qty: 30 RF: 0 ondansetron HCl [Zofran] 4 mg tablet 4 mg PO Q8H PRN (Reason: nausea and vomiting) Qty: 10 RF: 0 jmyxxnuzwo-kawmvjxxscogo-hmrc [Fioricet] 50-300-40 mg capsule 1 cap PO Q4-6H PRN (Reason: pain) Qty: 10 RF: 0 fluticasone propionate [Flonase Allergy Relief] 50 mcg/actuation spray,suspension 2 spray intranasal DAILY Qty: 16 RF: 0 omeprazole 40 mg capsule,delayed release(DR/EC) 40 mg PO DAILY 28 Days Qty: 28 RF: 0 sucralfate [Carafate] 1 gram tablet 1 g PO BID Qty: 60 RF: 0 hydroxyzine pamoate 25 mg capsule 25 mg PO BEDTIME PRN (Reason: Anxiety/ sleep) Qty: 14 RF: 1 omeprazole 20 mg capsule,delayed release(DR/EC) 20 mg PO DAILY Qty: 14 RF: 0 Referrals: Physician,Unknown [Primary Care Provider] - 2 days
[2021-03-23] MEDS: Acetaminophen 325 MG TABLET 975 MG PO (22:37)
== END 2021-03-23 23:49 | disposition home or self-care (01) ==
PROVIDERS: Emergency Provider Student in an Organized Health Care Education/Training Program
DX: B85.1 Pediculosis due to Pediculus humanus corporis (principal); R51.9 Headache, unspecified; R21 Rash and other nonspecific skin eruption; M54.2 Cervicalgia; Z79.899 Other long term (current) drug therapy
CPT/HCPCS: 96372; 99284

== ENCOUNTER 2021-03-24 14:59 | Emergency (ER) | payer OTHER, SELFPAY ==
[2021-03-24 15:18] VITALS: BP 126/80; PULSE 85; RESP 16; TEMP 36.7; O2SAT 98; BMI 21.9
--- NOTE | 2021-03-24 18:59 | ED_ITS ---
HPI - URI/Sore Throat General Chief Complaint: General Medical Stated Complaint: pain multiple issues Time Seen by Provider: 03/24/21 19:14 Source: patient Mode of arrival: ambulatory Limitations: no limitations History of Present Illness HPI Narrative: 36-year-old female presents with full body vesicular rash, throat and ear pain. Was seen here last night and treated for lice. MD elicited complaint: sore throat and other (Vesicular rash) Onset (ago): day(s) (4) Consistency: constant Severity: moderate Able to tolerate fluids by mouth: Yes Relieving factors: nothing Associated symptoms: denies other symptoms Related Data Previous Rx's Medication Instructions Recorded omeprazole 40 mg capsule,delayed 40 mg PO DAILY 28 Days #28 cap 08/25/20 release sucralfate 1 gram tablet (Carafate) 1 g PO BID #60 tab 08/25/20 jfalzeoruu-kkvqsgijuzbkz-effcaoel 1 cap PO Q4-6H PRN #10 cap 08/26/20 50 mg-300 mg-40 mg capsule (Fioricet) fluticasone propionate 50 2 spray INTRANASAL DAILY #16 g 08/26/20 mcg/actuation nasal spray,suspension (Flonase Allergy Relief) ondansetron HCl 4 mg tablet 4 mg PO Q8H PRN #10 tab 08/26/20 (Zofran) omeprazole magnesium 20 mg 40 mg PO DAILY #30 tab 09/11/20 tablet,delayed release (Prilosec OTC) hydroxyzine pamoate 25 mg capsule 25 mg PO BEDTIME PRN #14 cap 02/20/21 omeprazole 20 mg capsule,delayed 20 mg PO DAILY #14 cap 02/20/21 release cephalexin 500 mg capsule 500 mg PO QID 7 Days #28 cap 03/24/21 sulfamethoxazole 800 1 tab PO Q12H 7 Days #14 tab 03/24/21 mg-trimethoprim 160 mg tablet (Bactrim DS) Allergies Allergy/AdvReac Type Severity Reaction Status Date / Time oxycodone [OXYCODONE] Allergy Unknown NAUSEA & Verified 03/24/21 18:32 VOMITING Review of Systems Review of Systems: Constitutional: No Fever, No Chills ENT/Mouth: No Ear Pain, No Hoarseness, No sore throat Eyes: No Eye Pain, No Swelling, No Redness, No Foreign Body Cardiovascular: No Chest Pain, No SOB Respiratory: No Cough, No Dyspnea Gastrointestinal: No Nausea, No Vomiting, No Diarrhea, No abdominal Pain Genitourinary: No Dysuria, No Hematuria Musculoskeletal: positive joint pain, No Myalgias, No Joint Swelling Skin: No Skin lacerations, positive diffuse vesicular scattered rash Neuro: No Weakness, No Numbness, No Paresthesias, No Loss of Consciousness, No Dizziness, No Headache Psych: No Anxiety/Panic, No Depression Heme/Lymph: no easy bruising, no Lymphadenopathy Endocrine: No Polyuria, No Polydipsia Yes all other systems are reviewed and are negative [facility] Past Medical History Attestation statement: The following information was validated with the patient. Source: old records reviewed Medical History Acid reflux Upper abdominal pain Social History Social History Alcohol intake: never Advance Directives: No Advance Directives Information Provided: No Physical Exam Vital Signs: Vital Signs: Last Vital Signs Temp 98.1 F 03/24/21 15:18 Pulse 85 03/24/21 15:18 Resp 16 03/24/21 15:18 BP 126/80 03/24/21 15:18 Pulse Ox 98 03/24/21 15:18 Body Mass Index 21.9 Appearance: Alert. Oriented X3. Moderate distress. Eyes: Pupils equal, round and reactive to light. ENT: Pharynx normal. Bilateral tympanic membranes intact. No erythema or bulging noted. Neck: Normal inspection. Neck supple. CVS: Normal heart rate and rhythm. Pulses normal. Respiratory: No respiratory distress. Breath sounds normal. Abdomen: Soft and nontender. Skin: Scattered pustular vesicular rash to arms, legs, chest, abdomen, back, and neck. Skin warm and dry. Normal skin color. Normal skin turgor. Extremities: No lower extremity edema. Neuro: No motor deficit. No sensory deficit. Cranial nerves 2-12 intact. Course Course Course Narrative: 36-year-old female presents with pustular vesicular scattered diffuse rash throughout her entire body. States that his itching, she does complain of a sore throat and ear pain. Will test for Dr. Juancalros ARCEO in to evaluate. Both feel that this could possibly be a strep bacterial skin infection and will treat with Bactrim and Keflex as patient spends time outside. She was asked to discontinue body lice treatment as this rash is not indicative of lice or scabies, she was also advised to follow up with her primary care physician in approximately a week or Dermatology. patient verbalized understanding of and agrees to plan of care discharge home. MDM - URI/Sore Throat MDM Narrative Medical decision making narrative: Rash, staph infection Differential Diagnosis Differential diagnosis: Likely viral infection Medical Records Attestation: I reviewed the patient's medical records. Lab Data Attestation: I reviewed the patient's lab results. Result diagrams: 03/24/21 19:40 03/24/21 19:40 Labs: Lab Results 03/24/21 03/24/21 03/24/21 Range/Units 19:40 19:40 19:41 WBC 3.8 L (4.8-10.8) X10*3/uL RBC 4.19 L (4.20-5.50) X10*6/uL Hgb 12.6 (12.0-16.0) g/dl Hct 38.3 (37-47) % MCV 91.4 (80-98) fL MCH 30.1 (27.0-33.0) pg MCHC 32.9 (31.0-35.0) g/dl RDW 12.3 (11.0-16.0) % Plt Count 191 D (160-400) X10*3/uL MPV 11.0 (9.4-12.3) fL Immature Gran % (Auto) 0.0 (0.0-0.4) % Neut % (Auto) 47.6 (45-73) % Lymph % (Auto) 41.1 H (20-40) % [place] % (Auto) 11.0 (2-11) % Eos % (Auto) 0.0 (0-4) % Baso % (Auto) 0.3 (0-2) % Lymph # (Auto) 1.6 (1.2-4.9) X10*3/uL [place] # (Auto) 0.4 (0.1-1.2) X10*3/uL Eos # (Auto) 0.0 (0.0-0.4) X10*3/uL Baso # (Auto) 0.0 (0.0-0.2) X10*3/uL Abs Immat Gran (auto) 0.00 (0.00-0.03) X10*3/uL Absolute Neuts (auto) 1.8 L (2.0-8.3) X10*3/uL Absolute Nucleated RBC 0.000 (0.0-0.012) X10*3/uL Nucleated RBC % (auto) 0.0 (0.0-0.2) /100WBC Smear Tech's Comments VERIFIED Sodium 138 (135-145) mmol/L Potassium 3.6 (3.3-5.1) mmol/L Chloride 104 (96-108) mmol/L Carbon Dioxide 27 (22-29) mmol/L Anion Gap 11 L (12-20) BUN 6 L (9-16) mg/dL Creatinine 0.77 (0.5-1.4) mg/dL Estim Creat Clear Calc 86.4 Estimated GFR > 60 Random Glucose 89 (60-115) mg/dL Calcium 9.6 D (8.4-10.2) mg/dL Coronavirus (PCR) (Negative) Influenza Type A (PCR) (Negative) Influenza Type B (PCR) (Negative) RSV RNA Qual (PCR) (Negative) S. pyogenes GrpA TOM Negative (Negative) 03/24/21 Range/Units 19:41 WBC (4.8-10.8) X10*3/uL RBC (4.20-5.50) X10*6/uL Hgb (12.0-16.0) g/dl Hct (37-47) % MCV (80-98) fL MCH (27.0-33.0) pg MCHC (31.0-35.0) g/dl RDW (11.0-16.0) % Plt Count (160-400) X10*3/uL MPV (9.4-12.3) fL Immature Gran % (Auto) (0.0-0.4) % Neut % (Auto) (45-73) % Lymph % (Auto) (20-40) % [place] % (Auto) (2-11) % Eos % (Auto) (0-4) % Baso % (Auto) (0-2) % Lymph # (Auto) (1.2-4.9) X10*3/uL [place] # (Auto) (0.1-1.2) X10*3/uL Eos # (Auto) (0.0-0.4) X10*3/uL Baso # (Auto) (0.0-0.2) X10*3/uL Abs Immat Gran (auto) (0.00-0.03) X10*3/uL Absolute Neuts (auto) (2.0-8.3) X10*3/uL Absolute Nucleated RBC (0.0-0.012) X10*3/uL Nucleated RBC % (auto) (0.0-0.2) /100WBC Smear Tech's Comments Sodium (135-145) mmol/L Potassium (3.3-5.1) mmol/L Chloride (96-108) mmol/L Carbon Dioxide (22-29) mmol/L Anion Gap (12-20) BUN (9-16) mg/dL Creatinine (0.5-1.4) mg/dL Estim Creat Clear Calc Estimated GFR Random Glucose (60-115) mg/dL Calcium (8.4-10.2) mg/dL Coronavirus (PCR) NEGATIVE (Negative) Influenza Type A (PCR) NEGATIVE (Negative) Influenza Type B (PCR) NEGATIVE (Negative) RSV RNA Qual (PCR) NEGATIVE (Negative) S. pyogenes GrpA TOM (Negative) Discharge Plan Discharge Clinical Impression: Staph skin infection Patient Disposition: Home, Self-Care Instructions: Impetigo (ED) Additional Instructions: You were evaluated for a skin rash. This is suspected to be a Staph bacterial skin infection. Please take Bactrim and Keflex as directed. Please follow-up with primary care physician, and or Dermatology in a week. Thank you for choosing this emergency department for evaluation. Please follow-up with primary care physician as needed. Return to the emergency department for any new, concerning, or worsening symptoms. Prescriptions: New sulfamethoxazole-trimethoprim [Bactrim DS] 800-160 mg tablet 1 tab PO Q12H 7 Days Qty: 14 RF: 0 cephalexin 500 mg capsule 500 mg PO QID 7 Days Qty: 28 RF: 0 No Action omeprazole magnesium [Prilosec OTC] 20 mg tablet,delayed release (DR/EC) 40 mg PO DAILY Qty: 30 RF: 0 ondansetron HCl [Zofran] 4 mg tablet 4 mg PO Q8H PRN (Reason: nausea and vomiting) Qty: 10 RF: 0 xsvcmmwhvb-rllujjbouybkg-gjfg [Fioricet] 50-300-40 mg capsule 1 cap PO Q4-6H PRN (Reason: pain) Qty: 10 RF: 0 fluticasone propionate [Flonase Allergy Relief] 50 mcg/actuation spray,suspension 2 spray intranasal DAILY Qty: 16 RF: 0 omeprazole 40 mg capsule,delayed release(DR/EC) 40 mg PO DAILY 28 Days Qty: 28 RF: 0 sucralfate [Carafate] 1 gram tablet 1 g PO BID Qty: 60 RF: 0 hydroxyzine pamoate 25 mg capsule 25 mg PO BEDTIME PRN (Reason: Anxiety/ sleep) Qty: 14 RF: 1 omeprazole 20 mg capsule,delayed release(DR/EC) 20 mg PO DAILY Qty: 14 RF: 0 Referrals: [facility] [Outside] - 2 days [facility] [Outside] - 2 days Stand Alone Forms: Work/School Release Interventions: ED Discharge Assessment Last Done: 03/24/21 20:32 Discharge Date/Time: 03/24/21 20:34
[2021-03-24 20:14] LABS: IDNOW Serial# 08D9AD1C; Strep A Nucleic Acid Negative (Negative)
[2021-03-24 20:18] LABS: Anion Gap 11 (12-20); Blood Urea Nitrogen 6 mg/dL (9-16); Calcium 9.6 mg/dL (8.4-10.2); Carbon Dioxide 27 mmol/L (22-29); Chloride 104 mmol/L (96-108); Creatinine Clr Calc Pharmacy 86.4; Estimated Glomerular Filt Rate > 60; Glucose Random 89 mg/dL (60-115); Potassium 3.6 mmol/L (3.3-5.1); Sodium 138 mmol/L (135-145)
[2021-03-24 20:20] LABS: Basophils Percent Auto 0.3 % (0-2); Hematocrit 38.3 % (37-47); Hemoglobin 12.6 g/dl (12.0-16.0); Lymphocytes Absolute Auto 1.6 X10*3/uL (1.2-4.9); Lymphocytes Percent Auto 41.1 % (20-40); MANUAL DIFF FLAG SCAN; Mean Corpuscular HGB Conc 32.9 g/dl (31.0-35.0); Mean Corpuscular Hemoglobin 30.1 pg (27.0-33.0); Mean Corpuscular Volume 91.4 fL (80-98); Monocytes Absolute Auto 0.4 X10*3/uL (0.1-1.2); Neutrophils Absolute Auto 1.8 X10*3/uL (2.0-8.3); Neutrophils Percent Auto 47.6 % (45-73); Platelet Count 191 X10*3/uL (160-400); Red Blood Count 4.19 X10*6/uL (4.20-5.50); Red Cell Distribution Width 12.3 % (11.0-16.0); SCAN SMEAR FLAG 1; White Blood Count 3.8 X10*3/uL (4.8-10.8)
[2021-03-24 20:25] LABS: SLIDE REVIEW VERIFIED
[2021-03-24] MEDS: cephALEXin 500 MG CAPSULE PO (20:27)
[2021-03-24 20:43] LABS: Influenza A PCR NEGATIVE (Negative); Influenza B PCR NEGATIVE (Negative); Resp Syncy Virus RNA Qual PCR NEGATIVE (Negative); SARS COV2 PCR INHOUSE NEGATIVE (Negative)
== END 2021-03-24 20:34 | disposition home or self-care (01) ==
PROVIDERS: Nurse Practitioner Family; Emergency Provider Internal Medicine
DX: L01.00 Impetigo, unspecified (principal); B95.8 Unspecified staphylococcus as the cause of diseases classified elsewhere; M79.10 Myalgia, unspecified site; H92.03 Otalgia, bilateral; Z20.822 Contact with and (suspected) exposure to COVID-19; Z79.899 Other long term (current) drug therapy
CPT/HCPCS: 0241U; 36415; 80048; 85025; 87071; 87205; 87651; 99283; 99284

== ENCOUNTER 2021-04-02 12:01 | Outpatient (REF) | payer OTHER, SELFPAY ==
[2021-04-02 13:34] LABS: MANUAL DIFF FLAG NO
[2021-04-02 13:46] LABS: Basophils Absolute Auto 0.1 X10*3/uL (0.0-0.2); Basophils Percent Auto 0.8 % (0-2); Eosinophils Absolute Auto 0.1 X10*3/uL (0.0-0.4); Eosinophils Percent Auto 0.9 % (0-4); Hematocrit 40.2 % (37-47); Hemoglobin 13.4 g/dl (12.0-16.0); Imm Gran Abs Auto 0.02 X10*3/uL (0.00-0.03); Imm Gran Pct Auto 0.3 % (0.0-0.4); Lymphocytes Absolute Auto 2.3 X10*3/uL (1.2-4.9); Lymphocytes Percent Auto 28.8 % (20-40); Mean Corpuscular HGB Conc 33.3 g/dl (31.0-35.0); Mean Corpuscular Hemoglobin 30.6 pg (27.0-33.0); Mean Corpuscular Volume 91.8 fL (80-98); Mean Platelet Volume 10.4 fL (9.4-12.3); Monocytes Absolute Auto 0.6 X10*3/uL (0.1-1.2); Monocytes Percent Auto 7.2 % (2-11); Neutrophils Absolute Auto 4.8 X10*3/uL (2.0-8.3); Platelet Count 417 X10*3/uL (160-400); Red Blood Count 4.38 X10*6/uL (4.20-5.50); Red Cell Distribution Width 12.3 % (11.0-16.0); White Blood Count 7.8 X10*3/uL (4.8-10.8)
[2021-04-02 14:17] LABS: C Reactive Protein 0.04 mg/dL (< or = 0.50)
== END 2021-04-02 12:02 | disposition home or self-care (01) ==
LOC: HO.10HDL 12:01
PROVIDERS: Visit Provider Internal Medicine
DX: R21 Rash and other nonspecific skin eruption (principal); L98.9 Disorder of the skin and subcutaneous tissue, unspecified
CPT/HCPCS: 36415; 85025; 86140

== ENCOUNTER 2021-08-06 13:36 | Outpatient (REF) | payer OTHER, SELFPAY ==
[2021-08-06 15:31] LABS: Binax Internal Control QC Valid; Binax Now Covid-19 Ag Negative (Negative)
== END 2021-08-06 13:37 | disposition home or self-care (01) ==
LOC: HO.LAB 13:36
PROVIDERS: Visit Provider Internal Medicine
DX: Z20.822 Contact with and (suspected) exposure to COVID-19 (principal)
CPT/HCPCS: C9803

== ENCOUNTER 2022-02-10 11:34 | Emergency (ER) | payer OTHER, SELFPAY ==
--- NOTE | ~2022-02-10 | US_ITS ---
EXAMINATION: US OBSTETRICAL ULTRASOUND CLINICAL INFORMATION: Vaginal bleeding status post medical December 2019 COMPARISON: None. TECHNIQUE: Transabdominal and endovaginal scanning was performed. FINDINGS: A retroverted retroflexed uterus is present measuring 8.0 x 5.4 x 6.7 cm. The endometrium is 1.1 cm in thickness. The endometrium is heterogeneous with a hyperemic area concerning for retained products of conception. There is prominent uterine arterial vasculature seen and there are prominent adnexal veins. At the time of the prior CT abdomen, the left gonadal vein was markedly dilated at 1.1 cm with brisk reflux and the right ovarian vein was dilated as well at 0.9 cm. Right ovary measures 3.4 x 2.5 x 2.6 cm for a volume of 11.6 mL and appears unremarkable. The left ovary measures 4.5 x 1.6 x 2.2 cm for a volume of 8.3 mL and appears unremarkable. A small amount of free fluid is present cul-de-sac. US/US OB pelvic and transvaginal IMPRESSION: Heterogeneous endometrium with a hyperemic area suggesting possible retained products of conception. 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
[2022-02-10 13:52] VITALS: BP 120/78; PULSE 58; RESP 18; TEMP 36.6; O2SAT 98; BMI 22.3
[2022-02-10 14:20] LABS: MANUAL DIFF FLAG NO
[2022-02-10 14:21] LABS: Basophils Absolute Auto 0.1 X10*3/uL (0.0-0.2); Basophils Percent Auto 0.4 % (0-2); Eosinophils Absolute Auto 0.1 X10*3/uL (0.0-0.4); Eosinophils Percent Auto 0.7 % (0-4); Hematocrit 42.7 % (37.0-47.0); Hemoglobin 14.1 g/dl (12.0-16.0); Imm Gran Abs Auto 0.05 X10*3/uL (0.00-0.03); Imm Gran Pct Auto 0.4 % (0.0-0.4); Lymphocytes Absolute Auto 2.4 X10*3/uL (1.2-4.9); Lymphocytes Percent Auto 19.5 % (20-40); Mean Corpuscular Hemoglobin 30.7 pg (27.0-33.0); Mean Corpuscular Volume 92.8 fL (80.0-98.0); Mean Platelet Volume 10.1 fL (9.4-12.3); Monocytes Absolute Auto 0.6 X10*3/uL (0.1-1.2); Monocytes Percent Auto 5.2 % (2-11); Neutrophils Absolute Auto 8.9 x10*3/uL (2.0-8.3); Neutrophils Percent Auto 73.8 % (45-73); Platelet Count 415 X10*3/uL (160-400); Red Cell Distribution Width 12.6 % (11.0-16.0); White Blood Count 12.1 X10*3/uL (4.8-10.8)
[2022-02-10 14:29] LABS: Appearance Urine CLEAR; Color Urine YELLOW; Glucose Urine UA NEG (NEG); PH 6.5 (5.0-8.0); Specific Gravity - Urine 1.015 (1.005-1.025); Urine Blood 3+ (NEG); Urine Ketones NEG (NEG); Urine Protein NEG (NEG-TRACE)
[2022-02-10 14:30] LABS: Leukocyte Esterase Urine NEG (NEG); Nitrite Urine NEG (NEG); UACC Culture Trigger NO
[2022-02-10 14:32] LABS: UPreg QC Valid YES; Urine Pregnancy WEAKLY POSITIVE (NEGATIVE)
[2022-02-10 14:41] LABS: Bacteria Urine 1+ /LPF; Squamous Epithelial Cell Urine 2+ /LPF; WBC Urine 0-2 /HPF (0-4)
[2022-02-10 14:42] LABS: Anion Gap 15 (12-20); Blood Urea Nitrogen 8 mg/dL (9-16); Calcium 10.1 mg/dL (8.4-10.2); Carbon Dioxide 27 mmol/L (22-29); Chloride 103 mmol/L (96-108); Creatinine Clr Calc Pharmacy 86.6; Estimated Glomerular Filt Rate > 60; Glucose Random 104 mg/dL (60-115); Potassium 4.6 mmol/L (3.3-5.1); Sodium 140 mmol/L (135-145)
[2022-02-10 16:08] LABS: HCG Quantitative 99 mIU/mL
--- NOTE | 2022-02-10 19:37 | ED.WEAKNESS ---
HPI - Weakness General Chief complaint: Weakness Stated complaint: Nausea/Dizziness Time Seen by Provider: 02/10/22 15:47 Source: patient Mode of arrival: ambulatory Limitations: no limitations History of Present Illness HPI Narrative: 37-year-old female presents to the ER for evaluation of weakness and vaginal bleeding for the last 3 weeks. [facility] She inserted pills into her vagina and had vaginal bleeding for 7-10 days after the treatment. After about 10 days the bleeding stopped. About 2 weeks later she started having bleeding again and has been bleeding intermittently heavily for the last 3 weeks. She also reports nausea, weakness and feeling fatigued. She denies any sexual intercourse since her on December 29. She denies any abdominal pain, fever, chills, vaginal discharge or urinary symptoms. She is not on any medications and has no known medical problems. She denies any shortness of breath or chest pain. She is anxious and worried that her didn't work. MD Complaint: generalized weakness Onset (ago): week(s) Duration: progressively worsening Location: generalized Migration: none Severity: moderate Relieving factors: none Exacerbating factors: none Context: new medication and other (Recent therapeutic ) Associated symptoms: nausea/vomiting Related Data Previous Rx's Medication Instructions Recorded omeprazole 40 mg capsule,delayed 40 mg PO DAILY 4 weeks #28 caps 08/25/20 release sucralfate 1 gram tablet (Carafate) 1 g PO BID #60 tabs 08/25/20 lxfagrfecz-qtozlcdtuwkvd-gbjqqepr 1 cap PO Q4-6H PRN pain #10 caps 08/26/20 50 mg-300 mg-40 mg capsule (Fioricet) fluticasone propionate 50 2 spray intranasal DAILY #16 grams 08/26/20 mcg/actuation nasal spray,suspension (Flonase Allergy Relief) ondansetron HCl 4 mg tablet 4 mg PO Q8H PRN nausea and 08/26/20 (Zofran) vomiting #10 tabs omeprazole magnesium 20 mg 40 mg PO DAILY #30 tabs 09/11/20 tablet,delayed release (Prilosec OTC) hydroxyzine pamoate 25 mg capsule 25 mg PO BEDTIME PRN Anxiety/ 02/20/21 sleep #14 caps omeprazole 20 mg capsule,delayed 20 mg PO DAILY #14 caps 02/20/21 release cephalexin 500 mg capsule 500 mg PO QID 7 days #28 caps 03/24/21 sulfamethoxazole 800 1 tab PO Q12H 7 days #14 tabs 03/24/21 mg-trimethoprim 160 mg tablet (Bactrim DS) Allergies Allergy/AdvReac Type Severity Reaction Status Date / Time oxycodone [OXYCODONE] Allergy Unknown NAUSEA & Verified 03/24/21 18:32 VOMITING Review of Systems Review of Systems: Constitutional: No Fever, No Chills ENT/Mouth: No sore throat, No Rhinorrhea Cardiovascular: No Chest Pain, No SOB Respiratory: No Cough, No Sputum, No Wheezing, No dyspnea Gastrointestinal: No Nausea, No Vomiting, No Diarrhea, No abdominal Pain, No Hematochezia, No Melena Genitourinary: No Dysuria, No Urinary Frequency, No Hematuria, + vaginal bleeding, no vaginal discharge Musculoskeletal: No joint pain, No Myalgias Skin: No Skin Lesions, No rash Neuro: No Weakness, No Numbness, No Dizziness, No Headache Psych: + Anxiety/Panic, No Depression Heme/Lymph: No Bruising, No Lymphadenopathy Endocrine: No Polyuria, No Polydipsia [facility] Past Medical History Medical History Acid reflux Upper abdominal pain Social History Social History Alcohol intake: never Physical Exam Vital Signs: Vital Signs: Last Vital Signs Temp 96.7 F L 02/10/22 21:52 Pulse 67 02/10/22 21:52 Resp 16 02/10/22 21:52 BP 106/68 02/10/22 21:52 Pulse Ox 99 02/10/22 21:52 O2 Del Method 02/10/22 21:52 BMI result Body Mass Index 22.3 Appearance: Alert. Oriented X3. No acute distress. Eyes: Pupils equal, round and reactive to light. ENT: Pharynx normal. Neck: Normal inspection. Neck supple. CVS: Normal heart rate and rhythm. Pulses normal. Respiratory: No respiratory distress. Breath sounds normal. Abdomen: Soft with very mild suprapubic tenderness, no rebound or guarding. Normal +BS x4 Pelvic: normal appearance of external genitalia. vaginal canal with small amount of brown, old blood. cervical os is slitlike without active bleeding. Skin: Skin warm and dry. Normal skin color. Normal skin turgor. No rashes. Extremities: No lower extremity edema. Neuro: Oriented X 3. No motor deficit. No sensory deficit. anxious Course Course Course Narrative: 37-year-old female presents to the ER with generalized weakness and vaginal bleeding for the last 3 weeks in the setting of a therapeutic on December 29. Her lab work was performed in the waiting room. Her hemoglobin hematocrit are 14/42. She has a white blood cell count of 12.1. Her beta hCG is 99. There is concern for retained products of conception and incomplete therapeutic . Pelvic ultrasound has been ordered Dr. Edita Harrison has been made aware. Will perform pelvic exam when she is back from her ultrasound. Will also check Rh type. Anticipate she will need a D&C. At this time she is hemodynamically stable and afebrile. Reevaluation(s) Reevaluation #1: Ultrasound showing retained products of conception. Case was discussed with Dr. Kohler. Given the patient's hemodynamic stability, physical exam findings and stable blood counts plan will be for presentation to Dr. Kohler his office 1st thing tomorrow 08:00 an add on in the OR for D and C. This was discussed with the patient and she is in agreement with this plan she agrees to be NPO after midnight in go to doctors or resolve his at 08:00 tomorrow for treatment. She is stable for discharge home. Return precautions were discussed in the event her symptoms were significantly worsened overnight, she will return directed back to the emergency department. Consultations Consultation #1: OBGYN Dr. Kohler MDM - Weakness Lab Data Result diagrams: 02/10/22 14:12 02/10/22 14:12 Labs: Lab Results 02/10/22 02/10/22 02/10/22 Range/Units 14:08 14:08 14:12 WBC 12.1 H (4.8-10.8) X10*3/uL RBC 4.60 (4.20-5.50) X10*6/uL Hgb 14.1 (12.0-16.0) g/dl Hct 42.7 (37.0-47.0) % MCV 92.8 (80.0-98.0) fL MCH 30.7 (27.0-33.0) pg MCHC 33.0 (31.0-35.0) g/dl RDW 12.6 (11.0-16.0) % Plt Count 415 H (160-400) X10*3/uL MPV 10.1 (9.4-12.3) fL Immature Gran % (Auto) 0.4 (0.0-0.4) % Neut % (Auto) 73.8 H (45-73) % Lymph % (Auto) 19.5 L (20-40) % [place] % (Auto) 5.2 (2-11) % Eos % (Auto) 0.7 (0-4) % Baso % (Auto) 0.4 (0-2) % Lymph # (Auto) 2.4 (1.2-4.9) X10*3/uL [place] # (Auto) 0.6 (0.1-1.2) X10*3/uL Eos # (Auto) 0.1 (0.0-0.4) X10*3/uL Baso # (Auto) 0.1 (0.0-0.2) X10*3/uL Abs Immat Gran (auto) 0.05 H (0.00-0.03) X10*3/uL Absolute Neuts (auto) 8.9 H (2.0-8.3) x10*3/uL Absolute Nucleated RBC 0.000 (0.0-0.012) X10*3/uL Nucleated RBC % (auto) 0.0 (0.0-0.2) /100WBC Sodium (135-145) mmol/L Potassium (3.3-5.1) mmol/L Chloride (96-108) mmol/L Carbon Dioxide (22-29) mmol/L Anion Gap (12-20) BUN (9-16) mg/dL Creatinine (0.5-1.4) mg/dL Estim Creat Clear Calc Estimated GFR Random Glucose (60-115) mg/dL Calcium (8.4-10.2) mg/dL Beta HCG, Quant mIU/mL Urine Color YELLOW Urine Appearance CLEAR Urine pH 6.5 (5.0-8.0) Ur Specific [place] 1.015 (1.005-1.025) Urine Protein NEG (NEG-TRACE) MG/DL Urine Glucose (UA) NEG (NEG) MG/DL Urine Ketones NEG (NEG) MG/DL Urine Blood 3+ H (NEG) Urine Nitrite NEG (NEG) Ur Leukocyte Esterase NEG (NEG) Urine RBC 5-9 H (0) /HPF Urine WBC 0-2 (0-4) /HPF Ur Squamous Epith Cells 2+ /LPF Urine Bacteria 1+ /LPF Urine Test WEAKLY POSITIVE H (NEGATIVE) COVID-19 ([facility]) (Negative) COVID-19 Clin Com Blood Type 02/10/22 02/10/22 02/10/22 Range/Units 14:12 14:12 21:56 WBC (4.8-10.8) X10*3/uL RBC (4.20-5.50) X10*6/uL Hgb (12.0-16.0) g/dl Hct (37.0-47.0) % MCV (80.0-98.0) fL MCH (27.0-33.0) pg MCHC (31.0-35.0) g/dl RDW (11.0-16.0) % Plt Count (160-400) X10*3/uL MPV (9.4-12.3) fL Immature Gran % (Auto) (0.0-0.4) % Neut % (Auto) (45-73) % Lymph % (Auto) (20-40) % [place] % (Auto) (2-11) % Eos % (Auto) (0-4) % Baso % (Auto) (0-2) % Lymph # (Auto) (1.2-4.9) X10*3/uL [place] # (Auto) (0.1-1.2) X10*3/uL Eos # (Auto) (0.0-0.4) X10*3/uL Baso # (Auto) (0.0-0.2) X10*3/uL Abs Immat Gran (auto) (0.00-0.03) X10*3/uL Absolute Neuts (auto) (2.0-8.3) x10*3/uL Absolute Nucleated RBC (0.0-0.012) X10*3/uL Nucleated RBC % (auto) (0.0-0.2) /100WBC Sodium 140 (135-145) mmol/L Potassium 4.6 D (3.3-5.1) mmol/L Chloride 103 (96-108) mmol/L Carbon Dioxide 27 (22-29) mmol/L Anion Gap 15 (12-20) BUN 8 L (9-16) mg/dL Creatinine 0.76 (0.5-1.4) mg/dL Estim Creat Clear Calc 86.6 Estimated GFR > 60 Random Glucose 104 (60-115) mg/dL Calcium 10.1 (8.4-10.2) mg/dL Beta HCG, Quant 99 mIU/mL Urine Color Urine Appearance Urine pH (5.0-8.0) Ur Specific [place] (1.005-1.025) Urine Protein (NEG-TRACE) MG/DL Urine Glucose (UA) (NEG) MG/DL Urine Ketones (NEG) MG/DL Urine Blood (NEG) Urine Nitrite (NEG) Ur Leukocyte Esterase (NEG) Urine RBC (0) /HPF Urine WBC (0-4) /HPF Ur Squamous Epith Cells /LPF Urine Bacteria /LPF Urine Test (NEGATIVE) COVID-19 ([facility]) Negative (Negative) COVID-19 Clin Com See Note Blood Type A Positive Discharge Plan Discharge Clinical Impression: Retained products of conception following Patient Disposition: Home, Self-Care Instructions: Dilation and Curettage (DC) Additional Instructions: Your exam is consistent with retained products of conception after your . Present directly to Dr. Kohler's his office 1st thing tomorrow morning at 8am on the 5th floor. If you have new or worsening symptoms overnight, return directly back to the emergency room for further evaluation and treatment. Prescriptions: No Action omeprazole magnesium [Prilosec OTC] 20 mg tablet,delayed release (DR/EC) 40 mg PO DAILY Qty: 30 0RF ondansetron HCl [Zofran] 4 mg tablet 4 mg PO Q8H PRN (Reason: nausea and vomiting) Qty: 10 0RF imdckcasoq-uqpmfxbbereim-gpfm [Fioricet] 50-300-40 mg capsule 1 cap PO Q4-6H PRN (Reason: pain) Qty: 10 0RF Rx Instructions: do not exceed 6 caps per day fluticasone propionate [Flonase Allergy Relief] 50 mcg/actuation spray,suspension 2 spray intranasal DAILY Qty: 16 0RF Rx Instructions: administer into each nostril sulfamethoxazole-trimethoprim [Bactrim DS] 800-160 mg tablet 1 tab PO Q12H 7 Days Qty: 14 0RF cephalexin 500 mg capsule 500 mg PO QID 7 Days Qty: 28 0RF omeprazole 40 mg capsule,delayed release(DR/EC) 40 mg PO DAILY 28 Days Qty: 28 0RF sucralfate [Carafate] 1 gram tablet 1 g PO BID Qty: 60 0RF hydroxyzine pamoate 25 mg capsule 25 mg PO BEDTIME PRN (Reason: Anxiety/ sleep) Qty: 14 1RF omeprazole 20 mg capsule,delayed release(DR/EC) 20 mg PO DAILY Qty: 14 0RF Referrals: Aydin Kohler MD [Physician] - (Retained products of conception) Stand Alone Forms: Work/School Release Interventions: ED Discharge Assessment Last Done: 02/10/22 23:11 Discharge Date/Time: 02/10/22 23:20
--- NOTE | 2022-02-10 20:50 | P.CONOB_ITS ---
APARTMENT COMMUNITY ASSISTANT MANAGER - CN: HPI Data of Consult Consult date: 02/10/22 Primary Care Provider: Unknown Physician Consult Narrative Narrative: I was consulted on Cara Mascorro who is a 37 year old presented emergency room with vaginal bleeding for the last 3 weeks.? [facility] this was followed by 7-10 days of vaginal bleeding which completely resolved for the following 2 weeks. Then it restarted and she has been bleeding intermittently since then, no history of unprotected sexual intercourse since her medical termination of .? The patient denies any abdominal/pelvic pain, no fever, chills, or vaginal discharge. The following workup was done in the emergency room, H&H within normal, hCG 99, chemistry within normal, pelvic ultrasound showed hyperechoic material within endometrial cavity with vascularity concerning for retained products of conception cc:: CC: OB [facility] Past Medical History Medical History Acid reflux Upper abdominal pain Social History Social History Alcohol intake: never Advance Directives: No Advance Directives Information Provided: Yes Meds Allergies Allergy/AdvReac Type Severity Reaction Status Date / Time oxycodone [OXYCODONE] Allergy Unknown NAUSEA & Verified 03/24/21 18:32 VOMITING APARTMENT COMMUNITY ASSISTANT MANAGER Physical Exam Vitals Vital signs: Temp Pulse Resp BP Pulse Ox O2 Del Method 98 F 58 18 120/78 98 02/10/22 13:52 02/10/22 13:52 02/10/22 13:52 02/10/22 13:52 02/10/22 13:52 02/10/22 13:52 BMI result Body Mass Index 22.3 Additional Comments: Physical exam reported by JOHN Serrano in the emergency as the follow- up: Abdominal exam=soft nontender Pelvic exam showed no active bleeding and a closed cervix, nontender uterus and/or adnexa APARTMENT COMMUNITY ASSISTANT MANAGER - Results Labs CBC & Chem 7: 02/10/22 14:12 02/10/22 14:12 Labs: Short CBC 02/10/22 Range/Units 14:12 WBC 12.1 H (4.8-10.8) X10*3/uL Hgb 14.1 (12.0-16.0) g/dl Hct 42.7 (37.0-47.0) % Plt Count 415 H (160-400) X10*3/uL BMP 02/10/22 14:12 Sodium 140 Potassium 4.6 D Chloride 103 Carbon Dioxide 27 BUN 8 L Creatinine 0.76 Calcium 10.1 Urine 02/10/22 02/10/22 Range/Units 14:08 14:08 Urine Color YELLOW Urine Appearance CLEAR Urine pH 6.5 (5.0-8.0) Ur Specific [place] 1.015 (1.005-1.025) Urine Protein NEG (NEG-TRACE) MG/DL Urine Glucose (UA) NEG (NEG) MG/DL Urine Test WEAKLY POSITIVE H (NEGATIVE) Imaging US - abdomen: Radiologist's impression: ITS Impressions Pelvic/Transvag US 02/10/22 20:03 IMPRESSION: Heterogeneous endometrium with a hyperemic area suggesting possible retained products of conception. 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 Assessment and Plan (1) Retained products of conception following : Status: Acute Plan I recommended the following to JOHN Serrano: The clinical scenario of 3 weeks history of vaginal bleeding post medical termination of , and ultrasound finding showing hyperechoic material with vascularity in the endometrial cavity are suggestive of retained products of conception. Since the patient does not have any abdominal/pelvic pain, no active vaginal bleeding, vital signs are stable, her abdominal exam is within normal and benign and pelvic exam shows no active bleeding with closed cervix & her H&H is within normal, I recommend to have the patient follow-up in my office early in the morning, NPO after midnight, will international student counselor the patient regarding options of treatment including medical treatment versus suction D&C. Instructions to be given to patient to come back to emergency room in case any of the following occurs overnight: Heavy vaginal bleeding, temperature above 100.4, nausea and vomiting other of follow-up in her early a.m. in the morning. I spent a total of 25 minutes reviewing the chart, talking to the ER provider and documenting in the medical record
[2022-02-10 21:52] VITALS: BP 106/68; PULSE 67; RESP 16; TEMP 35.9; O2SAT 99
[2022-02-10] MEDS: 0.9 % Sodium Chloride 1,000 ML 999 ML IVCONT (21:58)
[2022-02-10 22:18] LABS: COVID-19 Test Negative (Negative); IDNOW Serial# 9DB6401D
== END 2022-02-10 23:20 | disposition home or self-care (01) ==
PROVIDERS: Physician Assistant; Emergency Provider Internal Medicine
DX: O03.4 Incomplete spontaneous abortion without complication (principal); R11.0 Nausea; F41.9 Anxiety disorder, unspecified; Z20.822 Contact with and (suspected) exposure to COVID-19; F17.210 Nicotine dependence, cigarettes, uncomplicated
CPT/HCPCS: 36415; 76801; 76817; 80048; 81001; 81025; 84702; 85025; 86900; 86901; 87635; 96360; 99283; 99284

== ENCOUNTER 2022-02-11 08:38 | Outpatient (REF) | payer OTHER, SELFPAY ==
[2022-02-11 14:17] LABS: CT PCR NOT DETECTED (Not Detect.); NG PCR NOT DETECTED (Not Detect.)
== END 2022-02-11 08:39 | disposition home or self-care (01) ==
LOC: HO.LAB 08:38
PROVIDERS: Visit Provider Obstetrics & Gynecology
DX: Z11.3 Encounter for screening for infections with a predominantly sexual mode of transmission (principal)
CPT/HCPCS: 87491; 87591

== ENCOUNTER 2022-02-11 09:01 | Day surgery (SDC) | payer OTHER, SELFPAY ==
[2022-02-11] VITALS (9 sets, daily range): BP systolic 102–124; BP diastolic 67–81; PULSE 56–69; RESP 16–18; TEMP 36.3–36.9; O2SAT 100; BMI 21.6
--- NOTE | ~2022-02-11 | US_ITS ---
EXAMINATION: ULTRASOUND OB LIMITED CLINICAL INFORMATION: COMPARISON: None. TECHNIQUE: Transabdominal limited imaging of pelvis is performed. FINDINGS: retroverted. US/US OB limited IMPRESSION:
--- NOTE | 2022-02-11 10:37 | MHC.SHP ---
Pre-Procedural Eval Section A Date of Service: 02/11/22 The patient is an INPATIENT: No Changes since office visit: No Cold of Flu in the past 2 weeks, No New Medical Problems, No Changes in Medication and No Patient answered all questions The History & Physical has been completed within 30 days and I have reviewed it.: Yes Section B Chief Complaint: retained POC D&C IN OR Allergies: Allergies Allergy/AdvReac Type Severity Reaction Status Date / Time oxycodone [OXYCODONE] Allergy Unknown NAUSEA & Verified 03/24/21 18:32 VOMITING Plan Diagnosis/Plan: Unchanged I have reviewed the history and physical and performed a pertinent physical examination on my patient. No changes have occurred unless specified.
--- NOTE | 2022-02-11 10:41 | HO.ANESPROP2 ---
[facility] [place] Active Problems Active Problems: All Active Problems (Updated 02/11/22 @ 08:50 by Aydin Kohler MD) Retained products of conception not following (Acute) Upper abdominal pain (Acute) Past Medical History Medical History Acid reflux Upper abdominal pain Patient : No Family History Family history of problems with anesthesia: No Surgical History History of Problems with Anesthesia: No Social History Social History Alcohol intake: never Patient Tobacco Use Status: Current everyday Tobacco user Tobacco use type: Cigarette Cigarette Packs Per Day: 1 Cigarettes Per Day: 20.0 Use of substances other than those prescribed or required for medical reasons: No Are you DNR?: No Advance Directives: No Advance Directives Information Provided: Yes Recently lost weight without trying: No Nutrition Risks: No Nutritional Risk Patient : No Meds Allergies Allergy/AdvReac Type Severity Reaction Status Date / Time oxycodone [OXYCODONE] Allergy Unknown NAUSEA & Verified 03/24/21 18:32 VOMITING Exam Exam Date and Time: February 11, 2022 1041 Airway Mallampati Class: III TM Dist: >3cm Neck ROM: Full Denture: Upper and Lower Heart: rrr Lungs: clear Assessment and Plan Final Anesthetic Review Family History of Problems with Anesthesia: No History of Problems with Anesthesia: No NPO: Yes ASA Class: II Final Preanesthetic Review: No Changes in Pt Med Stat, Meds/Allgs Chart Reviewed, Consent Obtained/Reviewed and Anes Risks/Benef Reviewed Patient Risk: Low Procedure Risk: Intermediate Anesthetic Plan Anesthetic Plan: GA Disposition: Standard PACU
[2022-02-11] MEDS: Lactated Ringers 500 ML 20 ML IVCONT (11:18)
--- NOTE | 2022-02-11 11:49 | P.BOP_ITS ---
Brief Operative Note Date of Service: 02/11/22 Pre-op diagnosis: Retained products of conception Post-op diagnosis: same Procedure: Suction D&C Surgeon: Aydin Kohler MD Anesthesia: MAC Was an [employer] Project Manager used for this Procedure?: No Estimated blood loss (mL): 10 Pathology: other (Retained Products of conception) Condition: stable Disposition: PACU
--- NOTE | 2022-02-11 11:50 | W.PM.OPN ---
Operative Note Operative Note Date of Service: 02/11/22 Narrative: Preop diagnosis: Retained products of conception Operation: suction D and C Postop diagnosis: The same EBL: Minimal Anesthesia: [employer] Development Analyst: None Pathology: Products of conception Procedure: The patient was put in a dorsal distal mid position was scrubbed and draped in the usual sterile fashion. A sterile speculum was inserted inside the patient's vagina the anterior lip of the cervix was grasped with single-tooth tenaculum the cervix was dilated up to 8 mm. Under ultrasonographic guidance flexible 8. Suction tip was introduced inside the patient ran cavity till the fundus was hit then turning the suction 360 degrees around products of conception was sucked out toward the uterine cavity. The suction tip was taken out of the patient uterine cavity sharp curettings was followed in 4 quadrants of the uterus till a gritty feeling was felt. The suction tip was reintroduced under ultrasonographic guidance and intrauterine blood was sucked. The suction tip was taken out. Single-tooth tenaculum was removed hemostasis assured using pressure. The patient tolerated the procedure well and was transferred to the PACU in a stable condition.
== END 2022-02-11 13:53 | disposition home or self-care (01) ==
PROVIDERS: Visit Provider Obstetrics & Gynecology
PROC: (CPT 59812; principal; 2022-02-11 11:00)
DX: O07.4 Failed attempted termination of pregnancy without complication (principal); K21.9 Gastro-esophageal reflux disease without esophagitis; F17.210 Nicotine dependence, cigarettes, uncomplicated
CPT/HCPCS: 59812; 76815; 88305; 99212; J1100; J2250; J2405; J3010

== ENCOUNTER → 2022-03-17 13:04 | Outpatient (BNVA) | payer OTHER, SELFPAY | PROVIDERS: Visit Provider Surgery | DX: K29.70 Gastritis, unspecified, without bleeding (principal); K42.9 Umbilical hernia without obstruction or gangrene; R10.31 Right lower quadrant pain; R10.13 Epigastric pain; R11.0 Nausea | CPT/HCPCS: 99202 ==

== ENCOUNTER → 2022-03-24 12:54 | Outpatient (BNVA) | payer OTHER, SELFPAY | PROVIDERS: Visit Provider Internal Medicine | DX: R10.10 Upper abdominal pain, unspecified (principal); R11.0 Nausea; R63.4 Abnormal weight loss | CPT/HCPCS: 99212 ==

== ENCOUNTER 2022-04-14 08:58 | Outpatient (REF) | payer OTHER, SELFPAY ==
[2022-04-14 10:47] LABS: HCG Quantitative < 2 mIU/mL
[2022-04-14 19:08] LABS: CT PCR NOT DETECTED (Not Detect.); NG PCR NOT DETECTED (Not Detect.)
== END 2022-04-14 08:59 | disposition home or self-care (01) ==
LOC: HO.LAB 08:58
PROVIDERS: Visit Provider Obstetrics & Gynecology
DX: R10.2 Pelvic and perineal pain (principal)
CPT/HCPCS: 36415; 84702; 87491; 87591; 99212

== ENCOUNTER 2022-06-17 08:49 | Emergency (ER) | payer OTHER, SELFPAY ==
--- NOTE | 2022-06-17 08:57 | ED.FEVER ---
HPI - Fever General Chief Complaint: Upper Respiratory Symptoms Stated Complaint: Chills Fever Body Aches Time Seen by Provider: 06/17/22 08:53 Source: patient Mode of arrival: ambulatory Limitations: no limitations History of Present Illness HPI Narrative: fever and myalgias with headache and nausea. Patient feeling weakness. MD elicited complaint: fever, malaise and weakness Onset (ago): hour(s) Exacerbating factors: nothing Relieving factors: nothing Associated symptoms: chills, myalgias, headache and nausea Related Data Previous Rx's Medication Instructions Recorded cyclobenzaprine 10 mg tablet 10 mg PO BEDTIME 10 days #10 tabs 03/24/22 pantoprazole 40 mg tablet,delayed 40 mg PO DAILY 4 weeks #28 tabs 03/24/22 release Allergies Allergy/AdvReac Type Severity Reaction Status Date / Time oxycodone [OXYCODONE] Allergy Unknown NAUSEA & Verified 04/14/22 08:39 VOMITING Review of Systems Review of Systems: Yes all other systems are reviewed and are negative Neurologic: Denies Sensory deficit (Neuro) [facility] Past Medical History Medical History Acid reflux Retained products of conception not following Upper abdominal pain Social History Social History Alcohol intake: never Patient Tobacco Use Status: Current everyday Tobacco user Tobacco use type: Cigarette Cigarette Packs Per Day: 1 Cigarettes Per Day: 20.0 Advance Directives: No Advance Directives Information Provided: Yes Physical Exam Vital Signs: Vital Signs: Last Vital Signs Temp 98.0 F 06/17/22 09:02 Pulse 107 H 06/17/22 09:02 Resp 16 06/17/22 09:02 BP 126/81 06/17/22 09:02 Pulse Ox 97 06/17/22 09:02 O2 Del Method 06/17/22 09:02 BMI result Body Mass Index 20.9 Const: General: healthy appearing Nutritional Appearance: average body habitus Orientation/consciousness: oriented to person and patient oriented x3 Limitations: no limitations HEENT: Head: Yes normal to inspection Ears: external ears normal General nose exam: Normal external nose present Mouth: Normal oral and palatal mucosa present and oropharynx normal Throat: Yes posterior oropharynx normal Eyes: General: appearance normal, both eyes and all related structures Neck: Other: supple Neck: Yes normal visual inspection Chest: Chest palpation & inspection: normal inspection of the chest Resp: Auscultation: clear to auscultation bilaterally Cardio: Jugular venous distension: no JVD Rate: regular rate Rhythm: regular rhythm Heart sounds: S1 normal heart sound present and S2 normal heart sound present GI: Inspection: Yes normal to inspection Palpation (GI): Soft to palpation, nontender and No hepatosplenomegaly present Auscultation: normal bowel sounds : General: Yes no CVA tenderness Back/Spine/Pelvis: Back: no CVA tenderness Skin: General skin exam: no rashes or lesions noted Neuro: General: oriented to person and patient oriented x3 Cranial nerves: Yes CN's II-XII intact bilaterally Motor exam (neuro): 5/5 motor strength present throughout Sensory Exam: No Sensory deficit (Neuro) Extrem: General: Yes normal to inspection Psych: Appearance: grossly normal Course Reevaluation(s) Reevaluation #1: Patient positive for COVID will dc home Time: 10:47 Medications Administered Discontinued Medications Generic Name Dose Route Start Last Admin Trade Name Jamesq PRN Reason Stop Dose Admin Ibuprofen 800 mg 06/17/22 09:01 06/17/22 09:16 Ibuprofen 800 Mg Tablet PO 06/17/22 09:02 800 mg ONCE ONE Administration MDM - Fever Lab Data Labs: Lab Results 06/17/22 06/17/22 06/17/22 Range/Units 09:22 09:22 09:22 Urine Color Yellow Urine Appearance Clear Urine pH 7.0 (5.0-9.0) Ur Specific [place] 1.015 (1.005-1.025) Urine Protein Negative (Neg-Trace) mg/dL Urine Glucose (UA) Negative (Negative) mg/dL Urine Ketones Negative (Negative) mg/dL Urine Blood Negative (Negative) Urine Nitrite Negative (Negative) Ur Leukocyte Esterase Negative (Negative) Urine Test NEGATIVE (NEGATIVE) Influenza Type A (PCR) NEGATIVE (Negative) Influenza Type B (PCR) NEGATIVE (Negative) RSV RNA Qual (PCR) NEGATIVE (Negative) SARS-CoV-2 RNA (RT-PCR) POSITIVE A (Negative) Discharge Plan Discharge Clinical Impression: COVID-19 Patient Disposition: Home, Self-Care Instructions: COVID-19 (Coronavirus Disease 2019) (ED) Prescriptions: No Action pantoprazole 40 mg tablet,delayed release (/EC) 40 mg PO DAILY 28 Days Qty: 28 0RF cyclobenzaprine 10 mg tablet 10 mg PO BEDTIME 10 Days Qty: 10 0RF Rx Instructions: can cause drowsiness Referrals: Physician,Unknown J [Primary Care Provider] - 1 week
[2022-06-17 09:02] VITALS: BP 126/81; PULSE 107; RESP 16; TEMP 36.7; O2SAT 97; BMI 20.9
[2022-06-17] MEDS: Ibuprofen 800 MG TABLET PO (09:16)
[2022-06-17 09:33] LABS: Appearance Urine Clear; Color Urine Yellow; Glucose Urine UA Negative (Negative); Leukocyte Esterase Urine Negative (Negative); Nitrite Urine Negative (Negative); Specific Gravity - Urine 1.015 (1.005-1.025); Urine Blood Negative (Negative); Urine Ketones Negative (Negative); Urine Protein Negative (Neg-Trace)
[2022-06-17 09:36] LABS: UPreg QC Valid YES; Urine Pregnancy NEGATIVE (NEGATIVE)
[2022-06-17 10:10] LABS: Influenza A PCR NEGATIVE (Negative); Influenza B PCR NEGATIVE (Negative); Resp Syncy Virus RNA Qual PCR NEGATIVE (Negative); SARS COV2 PCR INHOUSE POSITIVE (Negative)
== END 2022-06-17 11:13 | disposition home or self-care (01) ==
PROVIDERS: Emergency Provider Emergency Medicine
DX: U07.1 COVID-19 (principal); R50.9 Fever, unspecified; M79.10 Myalgia, unspecified site; R51.9 Headache, unspecified; F17.210 Nicotine dependence, cigarettes, uncomplicated; Z20.822 Contact with and (suspected) exposure to COVID-19; Z71.6 Tobacco abuse counseling
CPT/HCPCS: 0241U; 81003; 81025; 99283; 99284

== ENCOUNTER 2022-09-07 08:18 | Emergency (ER) | payer OTHER, SELFPAY ==
--- NOTE | ~2022-09-07 | XR_ITS ---
EXAMINATION: XR FINGER, RIGHT CLINICAL INFORMATION: Trauma COMPARISON: None TECHNIQUE: Three views of the right fifth finger. FINDINGS: Bone alignment is normal. No fracture or dislocation. Question cortical thinning or erosive change along the volar aspect of the distal phalanx at the DIP joint. Joint spaces are otherwise normal. Soft tissues are normal. XR/XR finger RT min 2V IMPRESSION: No fracture or dislocation. Question cortical thinning or erosive change along the volar aspect of the distal phalanx at the DIP joint.
[2022-09-07 08:21] VITALS: BP 135/88; PULSE 75; RESP 20; TEMP 36.4; O2SAT 100; BMI 21.6
--- NOTE | 2022-09-07 08:30 | ED_ITS ---
HPI - Extremity Problem General Chief complaint: Extremity Injury, Upper Stated complaint: r 5th finger inj in car door Time Seen by Provider: 09/07/22 08:30 Source: patient Mode of arrival: ambulatory Limitations: no limitations History of Present Illness HPI Narrative: Patient is a 37 year old assigned female at with no reported medical history presenting to the emergency department today with right 5th finger pain. Patient states that yesterday afternoon she smashed her finger in a car door and it still hurts now. Patient states that she is up to date on tetanus. Patient denies any dizziness, lightheadedness, abdominal pain, nausea, vomiting, fever, chills, blurry vision, double vision, loss of vision, chest pain, difficulty breathing, shortness of breath, back pain, night sweats, pain with urination, increased urinary frequency, increased urinary urgency, blood in her urine or stool, syncope or a near syncopal episode, bowel incontinence, bladder incontinence, bowel retention, bladder retention, or any other complaints at this time. MD Complaint: extremity pain Onset (ago): day(s) (1) Pain Consistency: constant Location: right and other (5th finger) Severity scale (1-10): 4 Quality: aching and dull Radiation: none Relieving factors: nothing Exacerbating factors: nothing Associated symptoms: denies other symptoms Related Data Previous Rx's Medication Instructions Recorded cyclobenzaprine 10 mg tablet 10 mg PO BEDTIME 10 days #10 tabs 03/24/22 ibuprofen 600 mg tablet 600 mg PO Q6H PRN fever or pain 06/17/22 #20 tabs pantoprazole 40 mg tablet,delayed 40 mg PO DAILY 4 weeks #28 tabs 07/30/22 release Allergies Allergy/AdvReac Type Severity Reaction Status Date / Time oxycodone [OXYCODONE] Allergy Unknown NAUSEA & Verified 04/14/22 08:39 VOMITING Review of Systems Constitutional: Constitutional: Reports no additional constitutional complaints, Denies chills, Denies fever(s) and Denies night sweats Eyes: Eyes: Reports no additional eye complaints, Denies blurry vision, Denies change in vision, Denies diplopia, Denies eye discharge, Denies loss of vision and Denies eye pain ENT: Denies dizziness Cardiovascular: Cardiovascular: Reports no additional cardiovascular complaints, Denies chest pain, Denies lightheadedness, Denies Loss of Consciousness and Denies dyspnea Respiratory: Respiratory: Reports no additional respiratory complaints and Denies dyspnea Gastrointestinal: Gastrointestinal: Reports no additional gastrointestinal complaints, Denies abdominal pain, Denies melena, Denies hematochezia, Denies change in bowel habits and Denies change in stool character Genitourinary: Genitourinary: Denies hematuria, Denies urinary frequency, Denies dysuria, Denies urinary incontinence, Denies urinary hesitancy and Denies urinary urgency Musculoskeletal: Musculoskeletal: Reports no additional musculoskeletal complaints, Denies numbness and Denies tingling Comments: right 5th finger pain Neurologic: Denies dizziness, Denies loss of vision, Denies numbness and Denies tingling Psychiatric: Psychiatric: Reports no additional psychiatric complaints Endocrine: Endocrine: Reports no additional endocrine complaints Hematologic/Lymphatic: Hematologic/Lymphatic: Reports no additional hematologic/lymphatic complaints Allergic/Immunologic: Allergic/Immunologic: Reports no additional allergic/immunologic complaints PMFSH Past Medical History Attestation statement: The following information was validated with the patient. Source: old records reviewed and nursing notes reviewed Medical History Acid reflux Retained products of conception not following Upper abdominal pain Social History Social History Alcohol intake: never Patient Tobacco Use Status: Current everyday Tobacco user Tobacco use type: Cigarette Cigarette Packs Per Day: 1 Cigarettes Per Day: 20.0 Smoked in Last 30 Days: Yes Use of substances other than those prescribed or required for medical reasons: No Advance Directives: No Advance Directives Information Provided: Yes Patient : No Physical Exam Vital Signs: Vital Signs: Last Vital Signs Temp 97.9 F 09/07/22 10:51 Pulse 65 09/07/22 10:51 Resp 16 09/07/22 10:51 BP 127/77 09/07/22 10:51 Pulse Ox 100 09/07/22 10:51 O2 Del Method 09/07/22 10:51 BMI result Body Mass Index 21.6 Const: General: cooperative, no acute distress, alert and awake Nutritional Appearance: well nourished Orientation/consciousness: patient oriented x3 Limitations: no limitations HEENT: Head: Yes normal to inspection and Yes atraumatic Ears: hearing grossly normal bilaterally and external ears normal General nose exam: Normal external nose present, no nasal discharge noted and no epistaxis Face and sinus: Yes normal facial exam, No abrasion and No laceration Mouth: Normal oral and palatal mucosa present, no drooling and no muffled voice Eyes: General: appearance normal, both eyes and all related structures Periorbital: periorbital findings normal Eyelids: Yes eyelids normal Conjunctivae: conjunctivae normal Pupils: Equal, round and reactive pupils present EOM: EOMs intact bilaterally Neck: Neck: Yes normal visual inspection, Yes full ROM and Yes no lymphadenopathy Chest: Chest palpation & inspection: normal inspection of the chest Resp: Effort & Inspection: normal respiratory effort and able to speak in complete sentences Auscultation: clear to auscultation bilaterally Cardio: Rate: regular rate Rhythm: regular rhythm GI: Inspection: Yes normal to inspection Palpation (GI): Soft to palpation, not firm, nontender, no guarding and not rigid Neuro: General: patient oriented x3 and moves all extremities Cranial nerves: Yes Equal, round and reactive pupils present Cognition (Neuro): normal cognition Motor exam (neuro): 5/5 motor strength present throughout Sensory Exam: Normal double simultaneous stimulation for sensation Coordination: [id number] test normal Extrem: Other: minimal swelling and bruising present to the distal right 5th finger General: Yes full ROM and Yes capillary refill normal Psych: Appearance: grossly normal Mental Status: mental status grossly normal Affect: normal affect Attitude: cooperative Thought process: Normal thought process present Thought content: Normal thought content present Insight: Good insight present (Psych) Medical Decision Making Medical Decision Making MDM Narrative: Patient is a 37 year old assigned female at with no reported medical history presenting to the emergency department today with right 5th finger pain. Patient's physical exam showed minimal bruising and swelling to the distal right 5th finger. Patient's right finger x-ray showed no acute process. I explained my physical exam findings as well as all test results to the patient. I answered all questions asked by the patient. Patient's right 5th finger was placed in a splint, without incident. I stressed the importance of the patient taking her medication as prescribed. I stressed the importance of the patient following up with her primary care provider and an orthopedic provider. I stressed the importance of the patient returning to the emergency department immediately if her symptoms were to worsen or if she were to develop any dizziness, shortness of breath, difficulty breathing, chest pain, blurry vision, loss of vision, nausea, vomiting, abdominal pain, fever, chills, back pain, or any other complaints. Patient verbalized agreement and understanding with this treatment plan and discharge. Differential Diagnosis Differential Diagnoses: The differential diagnosis associated with the presentation includes right 5th finger fracture, right 5th finger injury Lab Data MDM Lab Attestation statement: I reviewed the patient's lab results. Labs: Lab Results 09/07/22 09/07/22 Range/Units 08:53 08:53 Urine Color Yellow Urine Appearance Clear Urine pH 6.0 (5.0-9.0) Ur Specific [place] 1.020 (1.005-1.025) Urine Protein Negative (Neg-Trace) mg/dL Urine Glucose (UA) Negative (Negative) mg/dL Urine Ketones Negative (Negative) mg/dL Urine Blood Negative (Negative) Urine Nitrite Negative (Negative) Ur Leukocyte Esterase Trace H (Negative) Urine RBC 0-2 (0-2) /HPF Urine WBC 0-5 (0-5) /HPF Ur Squamous Epith Cells 6-10 (0-2) /HPF Urine Bacteria 1+ (None Seen) Hyaline Casts 0-2 (0-2) /LPF Urine Test NEGATIVE (NEGATIVE) Independent Interpretation Interpretation: My interpretation is in agreement with the radiologist's impression of this imaging study. EXAMINATION: XR FINGER, RIGHT CLINICAL INFORMATION: Trauma? COMPARISON: None? TECHNIQUE: Three views of the right fifth finger. FINDINGS: Bone alignment is normal. No fracture or dislocation. Question cortical thinning or erosive change along the volar aspect of the distal phalanx at the DIP joint. Joint spaces are otherwise normal. Soft tissues are normal.? XR/XR finger RT min 2V IMPRESSION: No fracture or dislocation. Question cortical thinning or erosive change along the volar aspect of the distal phalanx at the DIP joint. Dictated By: Mylene Ruiz MD Signed By: Electronically signed by Mylene Ruiz MD 09/07/22 1002 Procedures Orthopedic Splinting/Casting Injury #1: Side: right Upper Extremity Injury Location: finger (5th finger) Upper Extremity Immobilizer: aluminum form splint Discharge Plan Discharge Clinical Impression: Finger injury Patient Disposition: Home, Self-Care Instructions: Crush Injury (ED) Additional Instructions: Follow up with your primary care provider and an orthopedic provider. Return to the emergency department immediately if your symptoms worsen or if you develop any dizziness, shortness of breath, difficulty breathing, chest pain, blurry vision, loss of vision, nausea, vomiting, abdominal pain, fever, chills, back pain, or any other complaints. Prescriptions: No Action pantoprazole 40 mg tablet,delayed release (DR/EC) 40 mg PO DAILY 28 Days Qty: 28 1RF ibuprofen 600 mg tablet 600 mg PO Q6H PRN (Reason: fever or pain) Qty: 20 0RF cyclobenzaprine 10 mg tablet 10 mg PO BEDTIME 10 Days Qty: 10 0RF Rx Instructions: can cause drowsiness Referrals: [facility] [place] Group] (Call to establish and follow up with a [facility] care provider. If you already have a primary care provider, please follow up with them. ) [facility] [place]Provider Group] (Call to establish and follow up with a primary care provider. If you already have a primary care provider, please follow up with them. ) [facility] [Provider Group] (Call to establish and follow up with a primary care provider. If you already have a primary care provider, please follow up with them. ) [facility] [Provider Group] (Call to establish and follow up with an orthopedic provider.) Stand Alone Forms: Work/School Release Interventions: ED Discharge Assessment Last Done: 09/07/22 10:57 Discharge Date/Time: 09/07/22 10:58 Print Language: Arabic
[2022-09-07 09:01] LABS: Appearance Urine Clear; Color Urine Yellow; Glucose Urine UA Negative (Negative); Leukocyte Esterase Urine Trace (Negative); Nitrite Urine Negative (Negative); UMIC TRIGGER UACC YES; Urine Blood Negative (Negative); Urine Ketones Negative (Negative); Urine Protein Negative (Neg-Trace)
[2022-09-07 09:03] LABS: UPreg QC Valid YES; Urine Pregnancy NEGATIVE (NEGATIVE)
[2022-09-07 09:06] LABS: Bacteria Urine 1+ (None Seen); Hyaline Casts Urine 0-2 /LPF (0-2); RBC Urine 0-2 /HPF (0-2); WBC Urine 0-5 /HPF (0-5)
[2022-09-07 10:51] VITALS: BP 127/77; PULSE 65; RESP 16; TEMP 36.6; O2SAT 100
== END 2022-09-07 10:58 | disposition home or self-care (01) ==
PROVIDERS: Physician Assistant Medical; Emergency Provider Emergency Medicine
DX: S69.91XA Unspecified injury of right wrist, hand and finger(s), initial encounter (principal); X58.XXXA Exposure to other specified factors, initial encounter; Y93.89 Activity, other specified; Y92.9 Unspecified place or not applicable; Y99.9 Unspecified external cause status; F17.210 Nicotine dependence, cigarettes, uncomplicated
CPT/HCPCS: 29130; 73140; 81001; 81025; 99283; 99284

== ENCOUNTER 2022-09-23 08:13 | Emergency (ER) | payer OTHER, SELFPAY ==
[2022-09-23 08:36] VITALS: BP 107/69; PULSE 102; RESP 16; TEMP 36.6; O2SAT 99; BMI 46.9
[2022-09-23 08:53] LABS: MANUAL DIFF FLAG NO
[2022-09-23 08:55] LABS: Basophils Percent Auto 0.3 % (0-2); Eosinophils Percent Auto 0.6 % (0-4); Hemoglobin 14.7 g/dl (12.0-16.0); Imm Gran Abs Auto 0.02 X10*3/uL (0.00-0.03); Imm Gran Pct Auto 0.3 % (0.0-0.4); Lymphocytes Absolute Auto 0.8 X10*3/uL (1.2-4.9); Lymphocytes Percent Auto 11.3 % (20-40); Mean Corpuscular HGB Conc 33.4 g/dl (31.0-35.0); Mean Corpuscular Hemoglobin 30.6 pg (27.0-33.0); Mean Corpuscular Volume 91.7 fL (80.0-98.0); Mean Platelet Volume 10.2 fL (9.4-12.3); Monocytes Absolute Auto 0.3 X10*3/uL (0.1-1.2); Monocytes Percent Auto 4.9 % (2-11); Neutrophils Absolute Auto 5.7 x10*3/uL (2.0-8.3); Neutrophils Percent Auto 82.6 % (45-73); Platelet Count 248 X10*3/uL (160-400); Red Cell Distribution Width 12.4 % (11.0-16.0); White Blood Count 6.9 X10*3/uL (4.8-10.8)
[2022-09-23 09:13] LABS: Alanine Aminotransferase 105 U/L (0-31); Albumin Level 4.3 g/dL (3.5-5.0); Alkaline Phosphatase 108 U/L (39-117); Anion Gap 11 (12-20); Aspartate Amino Transferase 64 U/L (5-31); Bilirubin Total 0.4 mg/dL (0.0-1.0); Blood Urea Nitrogen 9 mg/dL (9-16); Calcium 8.8 mg/dL (8.4-10.2); Carbon Dioxide 26 mmol/L (22-29); Chloride 105 mmol/L (96-108); Estimated Glomerular Filt Rate > 60; Glucose Random 104 mg/dL (60-115); Potassium 3.9 mmol/L (3.3-5.1); Sodium 138 mmol/L (135-145); Total Protein 6.7 g/dL (6.5-8.0)
[2022-09-23 09:22] LABS: COVID-19 Test Negative (Negative); IDNOW Serial# 16C4AD1C
--- NOTE | 2022-09-23 10:03 | ED_ITS ---
HPI - Nausea/Vomiting/Diarrhea General Chief complaint: Nausea/Vomiting/Diarrhea Stated complaint: Nauseous Time Seen by Provider: 09/23/22 09:12 Source: patient Mode of arrival: ambulatory Limitations: no limitations History of Present Illness HPI Narrative: 37 Year old female with history of GERD here with 3 days of nausea, diarrhea, body aches, sinus pressure and pain as well as fatigue. Son was sick at home with similar symptoms. Patient reports decreased p.o. intake and she is feeling dehydrated. No abdominal pain or fever. No vomiting. Diarrhea nonbloody Associated nausea: Yes Related Data Previous Rx's Medication Instructions Recorded cyclobenzaprine 10 mg tablet 10 mg PO BEDTIME 10 days #10 tabs 03/24/22 ibuprofen 600 mg tablet 600 mg PO Q6H PRN fever or pain 06/17/22 #20 tabs pantoprazole 40 mg tablet,delayed 40 mg PO DAILY 4 weeks #28 tabs 07/30/22 release ondansetron 4 mg disintegrating 4 mg PO Q6H PRN nausea and 09/23/22 tablet vomiting #10 tabs Allergies Allergy/AdvReac Type Severity Reaction Status Date / Time No Known Allergies Allergy Verified 09/23/22 08:35 Review of Systems Review of Systems: Yes all other systems are reviewed and are negative Constitutional: Constitutional: Reports no additional constitutional complaints, Reports body ache(s), Denies chills, Reports fatigue, Denies fever(s), Denies headache(s) and Denies weakness Eyes: Eyes: Reports no additional eye complaints and Denies change in vision ENT: Reports system reviewed and no additional complaints, except as documented, Denies dizziness, Denies headache(s), Denies nasal congestion, Denies nasal discharge, Denies neck pain, Reports sinus pain and Reports sinus pressure Cardiovascular: Cardiovascular: Reports no additional cardiovascular complaints, Denies chest pain, Denies leg edema and Denies dyspnea Respiratory: Respiratory: Reports no additional respiratory complaints, Denies cough and Denies dyspnea Gastrointestinal: Gastrointestinal: Reports no additional gastrointestinal complaints, Denies abdominal pain, Reports diarrhea, Reports nausea and Denies vomiting Genitourinary: Genitourinary: Reports no additional female genitourinary complaints and Denies urinary incontinence Musculoskeletal: Musculoskeletal: Reports no additional musculoskeletal complaints, Denies back pain, Denies arthralgias, Denies joint swelling, Denies neck pain, Denies numbness and Denies tingling Integumentary/Breasts: Skin/Breast: Reports system reviewed and no additional complaints, except as docu and Denies rash Neurologic: Reports system reviewed and no additional complaints, except as documented, Denies Abnormal speech present, Denies dizziness, Denies headache(s), Denies numbness, Denies tingling and Denies weakness Endocrine: Endocrine: Reports fatigue PMFSH Past Medical History Attestation statement: The following information was validated with the patient. Source: old records reviewed and nursing notes reviewed Medical History Acid reflux Retained products of conception not following Upper abdominal pain Social History Social History Alcohol intake: never Patient Tobacco Use Status: Current everyday Tobacco user Tobacco use type: Cigarette Cigarette Packs Per Day: 1 Cigarettes Per Day: 20.0 Advance Directives: No Advance Directives Information Provided: Yes Physical Exam Vital Signs: Vital Signs: Last Vital Signs Temp 99.8 F 09/23/22 11:20 Pulse 69 09/23/22 11:20 Resp 17 09/23/22 11:20 BP 113/70 09/23/22 11:20 Pulse Ox 100 09/23/22 11:20 O2 Del Method 09/23/22 11:20 BMI result Body Mass Index 46.9 Const: General: cooperative, healthy appearing, comfortable and no acute distress Orientation/consciousness: patient oriented x3 Limitations: no l imitations HEENT: Head: Yes normal to inspection Ears: hearing grossly normal bilaterally and TM's normal bilaterally General nose exam: Normal external nose present Face and sinus: Yes normal facial exam Mouth: Normal oral and palatal mucosa present Throat: Yes posterior oropharynx normal Eyes: General: appearance normal, both eyes and all related structures Pupils: Equal, round and reactive pupils present Neck: Neck: Yes normal visual inspection, Yes full ROM, Yes no lymphadenopathy and Yes no meningeal signs Chest: Chest palpation & inspection: normal inspection of the chest Resp: Effort & Inspection: normal respiratory effort Auscultation: clear to auscultation bilaterally Cardio: Rate: regular rate Rhythm: regular rhythm Peripheral pulses: Peripheral pulses 2+ throughout GI: Inspection: Yes normal to inspection Palpation (GI): Soft to palpation and nontender Auscultation: normal bowel sounds Back/Spine/Pelvis: Thoracic/Lumbar Spine: thoracic and lumbar spine normal to inspection Skin: General skin exam: no rashes or lesions noted Neuro: General: patient oriented x3, no meningeal signs, no focal motor deficits and normal sensation to monofilament Cranial nerves: Yes Equal, round and reactive pupils present Cognition (Neuro): normal cognition Speech: No Abnormal speech present Gait exam (Neuro): Normal gait present Motor exam (neuro): 5/5 motor strength present throughout Extrem: General: Yes normal to inspection Course Course Course Narrative: Labs are unremarkable. Urine and urine are negative. Viral testing is negative. Patient had to leave prior to me discussing all of her results with her. Likely viral syndrome Medications Administered Discontinued Medications Generic Name Dose Route Start Last Admin Trade Name Jamesq PRN Reason Stop Dose Admin Sodium Chloride 1,000 mls @ 999 mls/hr 09/23/22 09:57 09/23/22 11:11 Ns IV 09/23/22 10:57 Infused .Q1H1M STA Infusion Ondansetron HCl 4 mg 09/23/22 09:57 09/23/22 10:19 Ondansetron Hcl 4 Mg/2 Ml Vial IVPUSH 09/23/22 09:58 4 mg ONCE ONE Administration Medical Decision Making Medical Decision Making [facility] Narrative: This is a 37-year-old female who presents to the emergency room with 3 days of nausea, diarrhea, fatigue, body aches, sinus pressure and pain and decreased oral intake. No fever or abdominal pain. Son has similar symptoms. Patient is here because she feels that she needs IV fluids may be dehydrated. On arrival vitals stable. Abdomen soft nontender. Lungs are clear. No meningeal signs. Overall patient nontoxic appearing. Will obtain labs, viral testing for flu and COVID, UA, urine . Will give IV fluids and antiemetic and reassess Differential Diagnosis Differential Diagnoses: The differential diagnosis associated with the presentation includes Less likely acute abdomen Viral syndrome, influenza, gastroenteritis Lab Data [facility] Lab Attestation statement: I reviewed the patient's lab results. 09/23/22 08:47 09/23/22 08:47 Labs: Lab Results 09/23/22 09/23/22 09/23/22 Range/Units 08:47 08:47 08:47 WBC 6.9 (4.8-10.8) X10*3/uL RBC 4.80 (4.20-5.50) X10*6/uL Hgb 14.7 (12.0-16.0) g/dl Hct 44.0 (37.0-47.0) % MCV 91.7 (80.0-98.0) fL MCH 30.6 (27.0-33.0) pg MCHC 33.4 (31.0-35.0) g/dl RDW 12.4 (11.0-16.0) % Plt Count 248 D (160-400) X10*3/uL MPV 10.2 (9.4-12.3) fL Immature Gran % (Auto) 0.3 (0.0-0.4) % Neut % (Auto) 82.6 H (45-73) % Lymph % (Auto) 11.3 L (20-40) % [place] % (Auto) 4.9 (2-11) % Eos % (Auto) 0.6 (0-4) % Baso % (Auto) 0.3 (0-2) % Lymph # (Auto) 0.8 L (1.2-4.9) X10*3/uL [place] # (Auto) 0.3 (0.1-1.2) X10*3/uL Eos # (Auto) 0.0 (0.0-0.4) X10*3/uL Baso # (Auto) 0.0 (0.0-0.2) X10*3/uL Abs Immat Gran (auto) 0.02 (0.00-0.03) X10*3/uL Absolute Neuts (auto) 5.7 (2.0-8.3) x10*3/uL Absolute Nucleated RBC 0.000 (0.0-0.012) X10*3/uL Nucleated RBC % (auto) 0.0 (0.0-0.2) /100WBC Sodium 138 (135-145) mmol/L Potassium 3.9 (3.3-5.1) mmol/L Chloride 105 (96-108) mmol/L Carbon Dioxide 26 (22-29) mmol/L Anion Gap 11 L (12-20) BUN 9 (9-16) mg/dL Creatinine 0.82 (0.5-1.4) mg/dL Estim Creat Clear Calc 121.0 Estimated GFR > 60 Random Glucose 104 (60-115) mg/dL Calcium 8.8 D (8.4-10.2) mg/dL Total Bilirubin 0.4 (0.0-1.0) mg/dL AST 64 H (5-31) U/L ALT 105 H (0-31) U/L Alkaline Phosphatase 108 (39-117) U/L Total Protein 6.7 (6.5-8.0) g/dL Albumin 4.3 (3.5-5.0) g/dL Urine Color Urine Appearance Urine pH (5.0-9.0) Ur Specific [place] (1.005-1.025) Urine Protein (Neg-Trace) mg/dL Urine Glucose (UA) (Negative) mg/dL Urine Ketones (Negative) mg/dL Urine Blood (Negative) Urine Nitrite (Negative) Ur Leukocyte Esterase (Negative) Urine Test (NEGATIVE) COVID-19 ([facility]) Negative (Negative) COVID-19 Clin Com See Note Influenza Type A (TOM) (Negative) Influenza Type B (TOM) (Negative) Influenza A & B Note 09/23/22 09/23/22 09/23/22 Range/Units 10:02 10:12 10:12 WBC (4.8-10.8) X10*3/uL RBC (4.20-5.50) X10*6/uL Hgb (12.0-16.0) g/dl Hct (37.0-47.0) % MCV (80.0-98.0) fL MCH (27.0-33.0) pg MCHC (31.0-35.0) g/dl RDW (11.0-16.0) % Plt Count (160-400) X10*3/uL MPV (9.4-12.3) fL Immature Gran % (Auto) (0.0-0.4) % Neut % (Auto) (45-73) % Lymph % (Auto) (20-40) % [place] % (Auto) (2-11) % Eos % (Auto) (0-4) % Baso % (Auto) (0-2) % Lymph # (Auto) (1.2-4.9) X10*3/uL [place] # (Auto) (0.1-1.2) X10*3/uL Eos # (Auto) (0.0-0.4) X10*3/uL Baso # (Auto) (0.0-0.2) X10*3/uL Abs Immat Gran (auto) (0.00-0.03) X10*3/uL Absolute Neuts (auto) (2.0-8.3) x10*3/uL Absolute Nucleated RBC (0.0-0.012) X10*3/uL Nucleated RBC % (auto) (0.0-0.2) /100WBC Sodium (135-145) mmol/L Potassium (3.3-5.1) mmol/L Chloride (96-108) mmol/L Carbon Dioxide (22-29) mmol/L Anion Gap (12-20) BUN (9-16) mg/dL Creatinine (0.5-1.4) mg/dL Estim Creat Clear Calc Estimated GFR Random Glucose (60-115) mg/dL Calcium (8.4-10.2) mg/dL Total Bilirubin (0.0-1.0) mg/dL AST (5-31) U/L ALT (0-31) U/L Alkaline Phosphatase (39-117) U/L Total Protein (6.5-8.0) g/dL Albumin (3.5-5.0) g/dL Urine Color Yellow Urine Appearance Clear Urine pH 6.0 (5.0-9.0) Ur Specific [place] 1.015 (1.005-1.025) Urine Protein Negative (Neg-Trace) mg/dL Urine Glucose (UA) Negative (Negative) mg/dL Urine Ketones Negative (Negative) mg/dL Urine Blood Negative (Negative) Urine Nitrite Negative (Negative) Ur Leukocyte Esterase Negative (Negative) Urine Test NEGATIVE (NEGATIVE) COVID-19 ([facility]) (Negative) COVID-19 Clin Com Influenza Type A (TOM) Negative (Negative) Influenza Type B (TOM) Negative (Negative) Influenza A & B Note See Note Discharge Plan Discharge Clinical Impression: Acute viral syndrome Patient Disposition: Home, Self-Care Instructions: Viral Syndrome (ED) Prescriptions: New ondansetron 4 mg tablet,disintegrating 4 mg PO Q6H PRN (Reason: nausea and vomiting) Qty: 10 0RF No Action pantoprazole 40 mg tablet,delayed release (DR/EC) 40 mg PO DAILY 28 Days Qty: 28 1RF ibuprofen 600 mg tablet 600 mg PO Q6H PRN (Reason: fever or pain) Qty: 20 0RF cyclobenzaprine 10 mg tablet 10 mg PO BEDTIME 10 Days Qty: 10 0RF Rx Instructions: can cause drowsiness Stand Alone Forms: Work/School Release Interventions: ED Discharge Assessment Last Done: 09/23/22 12:08 Discharge Date/Time: 09/23/22 12:09
[2022-09-23] MEDS: ondansetron HCL 4 MG/2 ML VIAL IVPUSH (10:19)
[2022-09-23] MEDS: 0.9 % Sodium Chloride 1,000 ML 999 ML IV (10:19)
[2022-09-23 10:31] LABS: IDNOW Serial# BCCEAD1C; Influenza A Negative (Negative); Influenza B2 Negative (Negative)
[2022-09-23 10:46] LABS: Appearance Urine Clear; Color Urine Yellow; Glucose Urine UA Negative (Negative); Leukocyte Esterase Urine Negative (Negative); Nitrite Urine Negative (Negative); Specific Gravity - Urine 1.015 (1.005-1.025); Urine Blood Negative (Negative); Urine Ketones Negative (Negative); Urine Protein Negative (Neg-Trace)
[2022-09-23 10:47] LABS: UPreg QC Valid YES; Urine Pregnancy NEGATIVE (NEGATIVE)
--- NOTE | 2022-09-23 11:19 | PC.NURSE ---
pt sts that she feels much better after fluids and zofran. pt is eager to discharge
[2022-09-23 11:20] VITALS: BP 113/70; PULSE 69; RESP 17; TEMP 37.7; O2SAT 100
== END 2022-09-23 12:09 | disposition home or self-care (01) ==
PROVIDERS: Nurse Practitioner Family; Emergency Provider Emergency Medicine
DX: B34.9 Viral infection, unspecified (principal); R11.2 Nausea with vomiting, unspecified; R19.7 Diarrhea, unspecified; Z20.822 Contact with and (suspected) exposure to COVID-19; F17.210 Nicotine dependence, cigarettes, uncomplicated
CPT/HCPCS: 80053; 81003; 81025; 85025; 87502; 87635; 96361; 96374; 99283; 99284; J2405

== ENCOUNTER 2022-11-17 21:00 | Emergency (ER) | payer OTHER, SELFPAY ==
[2022-11-17 21:06] VITALS: BP 132/84; PULSE 85; RESP 16; TEMP 36.3; O2SAT 99; BMI 21.9
[2022-11-17 21:33] LABS: IDNOW Serial# 9DB6401D; Influenza A Negative (Negative); Influenza B2 Negative (Negative)
[2022-11-17 21:34] LABS: COVID-19 Test Negative (Negative); IDNOW Serial# 08D9AD1C
[2022-11-17 23:35] VITALS: BP 120/85; PULSE 62; RESP 16; TEMP 36.7; O2SAT 100
--- NOTE | 2022-11-18 01:13 | ED.HA ---
HPI - Headache General Chief Complaint: Dizziness Stated Complaint: migraine Time Seen by Provider: 11/17/22 22:49 Source: patient Mode of arrival: ambulatory Limitations: no limitations History of Present Illness HPI Narrative: 38-year-old female who presents emergency department for evaluation of pressure headache, rhinorrhea, sneezing, and a buzzing sensation her left ear. Patient states that she has a pressure sensation behind her eyes, in her forehead on the top of her head she states that the pressure is been there since yesterday morning. She states she gets similar pressor once a week. She states that the pressure is 9/10 in associated with nausea but no vomiting. She denied photophobia or phonophobia.She took Tylenol with only minimal relief of her pain. She states that over the past 3 weeks she has had a buzzing sensation in her left ear. She denies left ear pain. She does not think that she has decreased hearing in her left ear. She also states that over the last 4-5 days she has had rhinorrhea, sneezing and feels congested Related Data Previous Rx's Medication Instructions Recorded cyclobenzaprine 10 mg tablet 10 mg PO BEDTIME 10 days #10 tabs 03/24/22 ibuprofen 600 mg tablet 600 mg PO Q6H PRN fever or pain 06/17/22 #20 tabs pantoprazole 40 mg tablet,delayed 40 mg PO DAILY 4 weeks #28 tabs 07/30/22 release ondansetron 4 mg disintegrating 4 mg PO Q6H PRN nausea and 09/23/22 tablet vomiting #10 tabs metoclopramide HCl 10 mg tablet 10 mg PO Q6H PRN nausea and 11/18/22 (Reglan) vomiting #14 tabs Allergies Allergy/AdvReac Type Severity Reaction Status Date / Time No Known Allergies Allergy Verified 11/17/22 21:06 Review of Systems Review of Systems: Yes all other systems are reviewed and are negative [facility] Past Medical History [facility] Narrative: Social history: She does smoke cigarettes. She denies alcohol use. She denies drug use. Medical History Acid reflux Retained products of conception not following Upper abdominal pain Surgical History Hx of dilation and curettage Social History Social History Alcohol intake: never Patient Tobacco Use Status: Current everyday Tobacco user Tobacco use type: Cigarette Cigarette Packs Per Day: 1 Cigarettes Per Day: 20.0 Advance Directives: No Advance Directives Information Provided: Yes Physical Exam Vital Signs: Vital Signs: Last Vital Signs Temp 98.0 F 11/17/22 23:35 Pulse 62 11/17/22 23:35 Resp 16 11/17/22 23:35 BP 120/85 11/17/22 23:35 Pulse Ox 100 11/17/22 23:35 O2 Del Method Room Air 11/17/22 23:35 BMI result Body Mass Index 21.9 Const: General: cooperative and no acute distress Orientation/consciousness: oriented to person and oriented to place Limitations: no limitations HEENT: Head: Yes normal to inspection, Yes normocephalic and Yes atraumatic Ears: external ears normal and TM's normal bilaterally General nose exam: Normal external nose present Face and sinus: Yes normal facial exam Mouth: Normal oral and palatal mucosa present Throat: Yes posterior oropharynx normal Eyes: General: appearance normal, both eyes and all related structures Pupils: Equal, round and reactive pupils present Neck: Neck: Yes normal visual inspection, Yes no lymphadenopathy, Yes trachea midline and Yes supple Chest: Chest palpation & inspection: normal inspection of the chest and normal palpation of entire chest wall Resp: Effort & Inspection: normal respiratory effort and able to speak in complete sentences Auscultation: clear to auscultation bilaterally Cardio: Rate: regular rate Rhythm: regular rhythm Heart sounds: S1 normal heart sound present, S2 normal heart sound present and no murmurs GI: Inspection: Yes normal to inspection Palpation (GI): Soft to palpation, nontender and no guarding Auscultation: normal bowel sounds : General: Yes no CVA tenderness Back/Spine/Pelvis: Back: no CVA tenderness Skin: General skin exam: no rashes or lesions noted Neuro: General: oriented to person and oriented to place Cranial nerves: Yes CN's II-XII intact bilaterally and Yes Equal, round and reactive pupils present Cognition (Neuro): normal cognition Motor exam (neuro): 5/5 motor strength present throughout Extrem: General: Yes normal to inspection Psych: Appearance: grossly normal Speech and movement: Normal speech and movement present Affect: normal affect Attitude: cooperative Thought process: Normal thought process present Thought content: Normal thought content present Medical Decision Making Medical Decision Making [facility] Narrative: 37-year-old female who presents emergency department for evaluation of pressure-like headache with pressure pain behind her eyes, in her forehead on the top of her head since yesterday morning. States she gets this type of headache once a week. Patient also complains of a buzzing sensation in her left ear with no loss of hearing. She also complains of rhinorrhea, sneezing and congestion x4 days. The patient symptoms are consistent with a migraine-like headache, tinnitus and allergic rhinitis/seasonal allergies. Patient will be treated with the following migraine regimen: Reglan 10 mg, Benadryl 50 mg, Excedrin migraine 1 tab every 6 hours as needed. She was also advised to take Zyrtec 10 mg once a day for her allergic rhinitis. Given printed and verbal instructions and discharged home Differential Diagnosis Differential diagnosis includes but is not limited to migraine headache, tinnitus, vertigo, allergic rhinitis, sinus infection Lab Data [facility] Lab Attestation statement: I reviewed the patient's lab results. See [facility] Labs: Lab Results 11/17/22 11/17/22 Range/Units 21:15 21:15 COVID-19 ([facility]) Negative (Negative) COVID-19 Clin Com See Note Influenza Type A (TOM) Negative (Negative) Influenza Type B (TOM) Negative (Negative) Influenza A & B Note See Note Discharge Plan Discharge Clinical Impression: Migraine, Tinnitus of left ear Allergic rhinitis Qualifiers: Allergic rhinitis trigger: pollen Allergic rhinitis seasonality: seasonal Qualified Code(s): J30.1 - Allergic rhinitis due to pollen Patient Disposition: Home, Self-Care Instructions: Migraine Headache (ED), Tinnitus (ED), Allergic Rhinitis (ED) Additional Instructions: The pressure in your head is consistent with a migraine syndrome. I want you to take the following 3 medications together every 6 hours as needed for headache, nausea or vomiting. Reglan (metoclopramide) in 10 mg, 1 pill Benadryl 25 mg, 2 pills Excedrin migraine, 1 pills. After you take these medications, lie down in a dark quiet room and try to fall asleep. These medications will make you sleepy, do not drive or work after taking these medications. Follow-up with your doctor in 2 days. Please return to the emergency department if your symptoms get worse or if you develop any symptoms that are concerning to you. Take Zyrtec 10 mg pills 1 pill once a day for your runny nose and sneezing The ringing in your ear is called tinnitus. This sometimes goes away without any treatment. If you are having trouble sleeping at night secondary to the buzzing noise in your, you should use a white noise machine or a white noise Adina on your phone to play at night to drown out the ringing noise Follow-up with your doctor in 2 days. Please return to the emergency department if your symptoms get worse or if you develop any symptoms that are concerning to you. Prescriptions: New metoclopramide HCl [Reglan] 10 mg tablet 10 mg PO Q6H PRN (Reason: nausea and vomiting) Qty: 14 0RF No Action pantoprazole 40 mg tablet,delayed release (DR/EC) 40 mg PO DAILY 28 Days Qty: 28 1RF ibuprofen 600 mg tablet 600 mg PO Q6H PRN (Reason: fever or pain) Qty: 20 0RF ondansetron 4 mg tablet,disintegrating 4 mg PO Q6H PRN (Reason: nausea and vomiting) Qty: 10 0RF cyclobenzaprine 10 mg tablet 10 mg PO BEDTIME 10 Days Qty: 10 0RF Rx Instructions: can cause drowsiness
== END 2022-11-18 01:46 | disposition home or self-care (01) ==
PROVIDERS: Emergency Provider Emergency Medicine Emergency Medical Services
DX: G43.909 Migraine, unspecified, not intractable, without status migrainosus (principal); J30.1 Allergic rhinitis due to pollen; H93.12 Tinnitus, left ear; Z20.822 Contact with and (suspected) exposure to COVID-19; Z20.828 Contact with and (suspected) exposure to other viral communicable diseases; Z79.899 Other long term (current) drug therapy
CPT/HCPCS: 87502; 87635; 99283; 99284

== ENCOUNTER 2023-01-04 17:28 | Emergency (ER) | payer OTHER, SELFPAY ==
--- NOTE | 2023-01-04 18:10 | ED_ITS ---
HPI - General Adult General Chief complaint: General Medical Stated complaint: blood in stool Time Seen by Provider: 01/04/23 18:48 Source: patient Mode of arrival: ambulatory Limitations: no limitations History of Present Illness HPI narrative: Patient is a 29-year-old female no significant past medical history presenting to the emergency department with complaint of dark stool yesterday after possibly ingesting plastic or other foreign body on Wednesday night. Patient reports that she purchased a container of tuna salad from a gas station. When she got home after taking 4-5 bites she noticed what appeared to be multiple pieces of plastic mixed in with the tuna salad. She then went to the bathroom and forced herself to vomit several times until she was able to see the contents of what she had eaten earlier in the day for lunch. She denies seeing any blood during these episodes of vomiting. She reports very mild right sided abdominal pain on Wednesday which has since resolved. She used some OTC antacids for her symptoms. She reports baking brownies on Wednesday and eating 4 or 5 of them. Last night when she had a bowel movement she noted it to be a very dark brown/black color which she describes as ?the same color as the brownies.? This morning she reports that her bowel movement was light brown in color. She denies any fever, current abdominal pain. She denies any dysuria, hematuria, or other urinary symptoms. MD complaint: Dark stool Onset (ago): day(s) Location: abdomen Radiation: non-radiation Severity: mild Quality: burning Pain Consistency: intermittent and now resolved Relieving factors: none Exacerbating factors: none Associated symptoms: other (dark stools) Treatments prior to arrival: other (antacids) Related Data Previous Rx's Medication Instructions Recorded cyclobenzaprine 10 mg tablet 10 mg PO BEDTIME 10 days #10 tabs 03/24/22 ibuprofen 600 mg tablet 600 mg PO Q6H PRN fever or pain 06/17/22 #20 tabs pantoprazole 40 mg tablet,delayed 40 mg PO DAILY 4 weeks #28 tabs 07/30/22 release ondansetron 4 mg disintegrating 4 mg PO Q6H PRN nausea and 09/23/22 tablet vomiting #10 tabs metoclopramide HCl 10 mg tablet 10 mg PO Q6H PRN nausea and 11/18/22 (Reglan) vomiting #14 tabs Allergies Allergy/AdvReac Type Severity Reaction Status Date / Time No Known Allergies Allergy Verified 01/04/23 18:11 Review of Systems Review of Systems: As per HPI. Yes all other systems are reviewed and are negative Constitutional: Constitutional: Reports as per HPI [facility] Past Medical History Medical History Acid reflux Retained products of conception not following Upper abdominal pain Surgical History Hx of dilation and curettage Social History Social History Alcohol intake: never Patient Tobacco Use Status: Current everyday Tobacco user Tobacco use type: Cigarette Cigarette Packs Per Day: 1 Cigarettes Per Day: 20.0 Advance Directives: No Advance Directives Information Provided: No Physical Exam ED Vital Signs: Vital Signs - 24 hr 01/04/23 18:12 Temperature 97.4 F Pulse Rate 72 Respiratory Rate 18 Blood Pressure 123/74 Pulse Oximetry 99 Oxygen Delivery Method Room Air BMI result Body Mass Index 21.2 Vital signs have been reviewed and appear to be correct. Blood pressure normal. Heart rate normal. Respiratory rate normal. Temperature normal. Oxygen saturation normal. Const General: cooperative, healthy appearing and no acute distress Orientation/consciousness: oriented to person, oriented to place, oriented to time and patient oriented x3 Limitations: no limitations HENMT Head: Yes normocephalic and Yes atraumatic Ears: external ears normal General nose exam: Normal external nose present Face and sinus: Yes face symmetric Mouth: oropharynx normal and moist mucous membranes Throat: Yes uvula midline Eyes Pupils: Equal, round and reactive pupils present Neck Neck: Yes normal visual inspection and Yes supple Resp Effort & Inspection: normal respiratory effort and able to speak in complete sentences Auscultation: clear to auscultation bilaterally Cardio Rate: regular rate Rhythm: regular rhythm Heart sounds: S1 normal heart sound present and S2 normal heart sound present GI Other: Exam chaperoned by SHOSHANA Huffman. Inspection: Yes normal to inspection Palpation (GI): Soft to palpation and nontender Auscultation: normoactive bowel sounds Rectal Exam - Female: External hemorrhoid(s) present General: Yes no CVA tenderness Back/Spine/Pelvis Back: no CVA tenderness Skin General skin exam: elasticity normal and turgor normal Neuro General: oriented to person, oriented to place, oriented to time, patient oriented x3, moves all extremities, no focal motor deficits and CN's II-XI intact bilaterally Cranial nerves: Yes Equal, round and reactive pupils present Cognition (Neuro): normal cognition Extrem General: Yes full ROM, Yes no pedal edema and Yes no calf tenderness Psych Mental Status: mental status grossly normal Affect: normal affect Thought process: Normal thought process present Course Course Course Narrative: RME: 37-year-old female with no significant past medical history presenting to the ED complaining of generalized fatigue/weakness, acid reflux and dark/black stool x yesterday. Admits accidentally ate ?plastic in tuna can on Wednesday & self induced emesis after incident. denies abdominal pain Labs, UA, occult stool ordered Full HPI, ROS and PE to be performed by primary ED provider. Medical Decision Making Medical Decision Making [facility] Narrative: Patient is a 29-year-old female no significant past medical history presenting to the emergency department with complaint of dark stool yesterday after possibly ingesting plastic or other foreign body on Wednesday night. On exam patient is awake, A+Ox3, abdomen is soft, nontender, no bloody or black stool noted on rectal exam. Guaiac negative. Labs all WNL. Leukocytes and WBC on UA, no nitrites and patient denies urinary symptoms. Differential includes foreign body ingestion, upper GI bleed, PUD. Given negative guaiac and patient's report of eating 4-5 brownies prior to episode of dark stool, as well as the fact that patient feels she vomited all tuna she ate and has no abdominal pain or tendernes, feel patient does not likely have any type of perforation or upper GI bleed. Feel patient is stable for discharge home. All results d iscussed and all questions answered. Return precautions discussed and bedside and patient instructed to follow up with PCP. Differential Diagnosis Differential Diagnoses: The differential diagnosis associated with the presentation includes As above. Lab Data [facility] Lab Attestation statement: I reviewed the patient's lab results. 01/04/23 18:33 01/04/23 18:33 Labs: Lab Results 01/04/23 01/04/23 01/04/23 Range/Units 18:33 18:33 18:33 WBC 8.0 (4.8-10.8) X10*3/uL RBC 4.21 (4.20-5.50) X10*6/uL Hgb 13.1 (12.0-16.0) g/dl Hct 38.9 (37.0-47.0) % MCV 92.4 (80.0-98.0) fL MCH 31.1 (27.0-33.0) pg MCHC 33.7 (31.0-35.0) g/dl RDW 12.6 (11.0-16.0) % Plt Count 282 (160-400) X10*3/uL MPV 10.7 (9.4-12.3) fL Immature Gran % (Auto) 0.1 (0.0-0.4) % Neut % (Auto) 59.6 (45-73) % Lymph % (Auto) 32.0 (20-40) % [place] % (Auto) 6.8 (2-11) % Eos % (Auto) 1.0 (0-4) % Baso % (Auto) 0.5 (0-2) % Lymph # (Auto) 2.6 (1.2-4.9) X10*3/uL [place] # (Auto) 0.5 (0.1-1.2) X10*3/uL Eos # (Auto) 0.1 (0.0-0.4) X10*3/uL Baso # (Auto) 0.0 (0.0-0.2) X10*3/uL Abs Immat Gran (auto) 0.01 (0.00-0.03) X10*3/uL Absolute Neuts (auto) 4.7 (2.0-8.3) x10*3/uL Absolute Nucleated RBC 0.000 (0.0-0.012) X10*3/uL Nucleated RBC % (auto) 0.0 (0.0-0.2) /100WBC PT 11.3 (10.0-13.1) SEC INR 1.0 (0.9-1.1) Sodium 139 (135-145) mmol/L Potassium 4.2 (3.3-5.1) mmol/L Chloride 106 (96-108) mmol/L Carbon Dioxide 24 (22-29) mmol/L Anion Gap 13 (12-20) BUN 9 (9-16) mg/dL Creatinine 0.72 (0.5-1.4) mg/dL Estim Creat Clear Calc 91.5 Estimated GFR > 60 Random Glucose 85 (60-115) mg/dL Calcium 9.8 D (8.4-10.2) mg/dL Magnesium 2.2 (1.6-2.6) mg/dL Total Bilirubin 0.4 (0.0-1.0) mg/dL Direct Bilirubin 0.1 (0.0-0.5) mg/dL AST 15 (5-31) U/L ALT 24 (0-31) U/L Alkaline Phosphatase 54 (39-117) U/L Total Protein 7.2 (6.5-8.0) g/dL Albumin 4.6 (3.5-5.0) g/dL Lipase 23 (8-78) U/L Beta HCG, Quant < 2 mIU/mL Urine Color Urine Appearance Urine pH (5.0-9.0) Ur Specific [place] (1.005-1.025) Urine Protein (Neg-Trace) mg/dL Urine Glucose (UA) (Negative) mg/dL Urine Ketones (Negative) mg/dL Urine Blood (Negative) Urine Nitrite (Negative) Ur Leukocyte Esterase (Negative) Urine RBC (0-2) /HPF Urine WBC (0-5) /HPF Ur Squamous Epith Cells (0-2) /HPF Urine Bacteria (None Seen) Hyaline Casts (0-2) /LPF Stool Occult Blood (NEGATIVE) 01/04/23 01/04/23 Range/Units 18:38 19:06 WBC (4.8-10.8) X10*3/uL RBC (4.20-5.50) X10*6/uL Hgb (12.0-16.0) g/dl Hct (37.0-47.0) % MCV (80.0-98.0) fL MCH (27.0-33.0) pg MCHC (31.0-35.0) g/dl RDW (11.0-16.0) % Plt Count (160-400) X10*3/uL MPV (9.4-12.3) fL Immature Gran % (Auto) (0.0-0.4) % Neut % (Auto) (45-73) % Lymph % (Auto) (20-40) % [place] % (Auto) (2-11) % Eos % (Auto) (0-4) % Baso % (Auto) (0-2) % Lymph # (Auto) (1.2-4.9) X10*3/uL [place] # (Auto) (0.1-1.2) X10*3/uL Eos # (Auto) (0.0-0.4) X10*3/uL Baso # (Auto) (0.0-0.2) X10*3/uL Abs Immat Gran (auto) (0.00-0.03) X10*3/uL Absolute Neuts (auto) (2.0-8.3) x10*3/uL Absolute Nucleated RBC (0.0-0.012) X10*3/uL Nucleated RBC % (auto) (0.0-0.2) /100WBC PT (10.0-13.1) SEC INR (0.9-1.1) Sodium (135-145) mmol/L Potassium (3.3-5.1) mmol/L Chloride (96-108) mmol/L Carbon Dioxide (22-29) mmol/L Anion Gap (12-20) BUN (9-16) mg/dL Creatinine (0.5-1.4) mg/dL Estim Creat Clear Calc Estimated GFR Random Glucose (60-115) mg/dL Calcium (8.4-10.2) mg/dL Magnesium (1.6-2.6) mg/dL Total Bilirubin (0.0-1.0) mg/dL Direct Bilirubin (0.0-0.5) mg/dL AST (5-31) U/L ALT (0-31) U/L Alkaline Phosphatase (39-117) U/L Total Protein (6.5-8.0) g/dL Albumin (3.5-5.0) g/dL Lipase (8-78) U/L Beta HCG, Quant mIU/mL Urine Color Yellow Urine Appearance Clear Urine pH 6.0 (5.0-9.0) Ur Specific [place] 1.015 (1.005-1.025) Urine Protein Negative (Neg-Trace) mg/dL Urine Glucose (UA) Negative (Negative) mg/dL Urine Ketones Negative (Negative) mg/dL Urine Blood Negative (Negative) Urine Nitrite Negative (Negative) Ur Leukocyte Esterase Small (1+) H (Negative) Urine RBC 0-2 (0-2) /HPF Urine WBC 11-20 H (0-5) /HPF Ur Squamous Epith Cells 6-10 (0-2) /HPF Urine Bacteria 2+ (None Seen) Hyaline Casts 0-2 (0-2) /LPF Stool Occult Blood NEGATIVE (NEGATIVE) External Record Review External record reviewed: Inpatient record, Office record and Outpatient record Discharge Plan Discharge Clinical Impression: Dark stools, Encounter for observation for suspected ingested foreign body ruled out Patient Disposition: Home, Self-Care Instructions: Foreign Body Ingestion (ED) Additional Instructions: You were evaluated in the emergency department today for possible ingestion of a foreign body as well as dark stools. Your stool did not test positive for blood. Return to the emergency department if you experience worsening abdominal pain, vomit blood, have dark, tarry stools, develop a fever 100.4? F or greater, inability to tolerate fluids by mouth or any other concerning symptoms. Prescriptions: No Action pantoprazole 40 mg tablet,delayed release (DR/EC) 40 mg PO DAILY 28 Days Qty: 28 1RF ibuprofen 600 mg tablet 600 mg PO Q6H PRN (Reason: fever or pain) Qty: 20 0RF ondansetron 4 mg tablet,disintegrating 4 mg PO Q6H PRN (Reason: nausea and vomiting) Qty: 10 0RF metoclopramide HCl [Reglan] 10 mg tablet 10 mg PO Q6H PRN (Reason: nausea and vomiting) Qty: 14 0RF cyclobenzaprine 10 mg tablet 10 mg PO BEDTIME 10 Days Qty: 10 0RF Rx Instructions: can cause drowsiness
[2023-01-04 18:12] VITALS: BP 123/74; PULSE 72; RESP 18; TEMP 36.3; O2SAT 99; BMI 21.2
[2023-01-04 18:43] LABS: MANUAL DIFF FLAG NO
[2023-01-04 18:45] LABS: Appearance Urine Clear; Color Urine Yellow; Glucose Urine UA Negative (Negative); Leukocyte Esterase Urine Small (1+) (Negative); Nitrite Urine Negative (Negative); Specific Gravity - Urine 1.015 (1.005-1.025); UMIC TRIGGER UACC YES; Urine Blood Negative (Negative); Urine Ketones Negative (Negative); Urine Protein Negative (Neg-Trace)
[2023-01-04 18:50] LABS: Prothrombin Time 11.3 SEC (10.0-13.1)
[2023-01-04 18:51] LABS: Basophils Percent Auto 0.5 % (0-2); Eosinophils Absolute Auto 0.1 X10*3/uL (0.0-0.4); Hematocrit 38.9 % (37.0-47.0); Hemoglobin 13.1 g/dl (12.0-16.0); Imm Gran Abs Auto 0.01 X10*3/uL (0.00-0.03); Imm Gran Pct Auto 0.1 % (0.0-0.4); Lymphocytes Absolute Auto 2.6 X10*3/uL (1.2-4.9); Mean Corpuscular HGB Conc 33.7 g/dl (31.0-35.0); Mean Corpuscular Hemoglobin 31.1 pg (27.0-33.0); Mean Corpuscular Volume 92.4 fL (80.0-98.0); Mean Platelet Volume 10.7 fL (9.4-12.3); Monocytes Absolute Auto 0.5 X10*3/uL (0.1-1.2); Monocytes Percent Auto 6.8 % (2-11); Neutrophils Absolute Auto 4.7 x10*3/uL (2.0-8.3); Neutrophils Percent Auto 59.6 % (45-73); Platelet Count 282 X10*3/uL (160-400); Red Blood Count 4.21 X10*6/uL (4.20-5.50); Red Cell Distribution Width 12.6 % (11.0-16.0)
[2023-01-04 18:56] LABS: Bacteria Urine 2+ (None Seen); Hyaline Casts Urine 0-2 /LPF (0-2); RBC Urine 0-2 /HPF (0-2); UACC Culture Trigger YES
[2023-01-04 19:06] LABS: Alanine Aminotransferase 24 U/L (0-31); Albumin Level 4.6 g/dL (3.5-5.0); Alkaline Phosphatase 54 U/L (39-117); Anion Gap 13 (12-20); Aspartate Amino Transferase 15 U/L (5-31); Bilirubin Direct 0.1 mg/dL (0.0-0.5); Bilirubin Total 0.4 mg/dL (0.0-1.0); Blood Urea Nitrogen 9 mg/dL (9-16); Calcium 9.8 mg/dL (8.4-10.2); Carbon Dioxide 24 mmol/L (22-29); Chloride 106 mmol/L (96-108); Creatinine Clr Calc Pharmacy 91.5; Estimated Glomerular Filt Rate > 60; Glucose Random 85 mg/dL (60-115); Lipase 23 U/L (8-78); Magnesium 2.2 mg/dL (1.6-2.6); Potassium 4.2 mmol/L (3.3-5.1); Sodium 139 mmol/L (135-145); Total Protein 7.2 g/dL (6.5-8.0)
[2023-01-04 19:08] LABS: HCG Quantitative < 2 mIU/mL
[2023-01-04 19:13] LABS: OBS Int Ctl Valid YES; OBS1 NEGATIVE (NEGATIVE)
== END 2023-01-04 19:51 | disposition home or self-care (01) ==
PROVIDERS: Physician Assistant; Emergency Provider Emergency Medicine Emergency Medical Services
DX: R19.5 Other fecal abnormalities (principal); R10.9 Unspecified abdominal pain
CPT/HCPCS: 36415; 80048; 80076; 81001; 82272; 83690; 83735; 84702; 85025; 85610; 87086; 99282; 99283

== ENCOUNTER 2023-02-01 09:49 | Emergency (ER) | payer OTHER, SELFPAY ==
[2023-02-01 11:08] VITALS: BP 107/68; PULSE 84; RESP 12; TEMP 36.6; O2SAT 100; BMI 20.6
--- NOTE | 2023-02-01 11:50 | ED.GENADULT ---
HPI - General Adult General Chief complaint: Nausea/Vomiting/Diarrhea Stated complaint: ABD PAIN Time Seen by Provider: 02/01/23 13:56 Source: patient Mode of arrival: ambulatory Limitations: no limitations History of Present Illness HPI narrative: 38-year-old female presents emergency department complaining of nausea and vomiting diarrhea 5 days ago his symptoms have since resolved he did have some right upper quadrant pain which is also resolved patient mainly just wants a L of fluid patient did have lab work done she has no pain at that time she denies fevers chills she is refusing Zofran or Pepcid she states she has 1 script that she has bulk picker her son but is adamant she has got a L of fluid before she goes.. Onset (ago): day(s) Related Data Previous Rx's Medication Instructions Recorded cyclobenzaprine 10 mg tablet 10 mg PO BEDTIME 10 days #10 tabs 03/24/22 ibuprofen 600 mg tablet 600 mg PO Q6H PRN fever or pain 06/17/22 #20 tabs pantoprazole 40 mg tablet,delayed 40 mg PO DAILY 4 weeks #28 tabs 07/30/22 release ondansetron 4 mg disintegrating 4 mg PO Q6H PRN nausea and 09/23/22 tablet vomiting #10 tabs metoclopramide HCl 10 mg tablet 10 mg PO Q6H PRN nausea and 11/18/22 (Reglan) vomiting #14 tabs ondansetron 4 mg disintegrating 4 mg PO Q6H #14 tabs 02/01/23 tablet Allergies Allergy/AdvReac Type Severity Reaction Status Date / Time No Known Allergies Allergy Verified 01/04/23 18:11 Review of Systems Review of Systems: Review of systems: General: Patient denies any fever chills recent illness or falls Musculoskeletal: Denies back pain or body aches or other injuries HEENT: denies headache, runny nose, ear pain Respiratory: denies shortness of breath, cough Cardiovascular: no chest pain or palpitations : denies dysuria, frequency Abdomen: no nausea vomiting denies abdominal pain Extremities: no swelling, no pain Skin: no diaphoresis Yes all other systems are reviewed and are negative PMFSH Past Medical History Medical History Acid reflux Retained products of conception not following Upper abdominal pain Surgical History Hx of dilation and curettage Social History Social History Alcohol intake: never Patient Tobacco Use Status: Current everyday Tobacco user Tobacco use type: Cigarette Cigarette Packs Per Day: 1 Cigarettes Per Day: 20.0 Advance Directives: No Advance Directives Information Provided: No Physical Exam ED Vital Signs: Vital Signs - 24 hr 02/01/23 11:08 Temperature 97.8 F Pulse Rate 84 Respiratory Rate 12 Blood Pressure 107/68 Pulse Oximetry 100 BMI result Body Mass Index 20.6 General: Well-appearing well-nourished in no signs of distress HEENT: Normocephalic atraumatic Neck: No signs of JVD, no masses no tenderness or lymphadenopathy Cardiovascular: Regular rate and rhythm Respiratory: Clear to auscultation bilaterally Abdomen: Soft nontender no masses Extremities: Normal pedal pulses no signs of edema Skin: Dry warm no rashes Back: No tenderness full ROM Course Course Course Narrative: This is an RME: Additional HPI, ROS, PE not included below will be deferred to primary provider. 38 year old female presents w/ RUQ pain yesterday with a/ nausesa. Symptoms have resolved. No urinary sx Plan- labs urine, no need for imaging Medical Decision Making Medical Decision Making MDM Narrative: Patient had labs wall in the front area I agree there is no need for CT imaging in this patient her belly exam is benign patient is refusing any medications at this time had a chest CT earlier foot I tried to explain that fluids will not change her outcome and is better to drink water but she is still adamant she has to get an IV which should be done for the patient. Differential Diagnosis Differential Diagnoses: The differential diagnosis associated with the presentation includes Gastritis diarrhea dehydration acute kidney injury Admission/Observation Consideration of admission/observation: Escalation of care including admission/observation considered Lab Data [facility] Lab Attestation statement: I reviewed the patient's lab results. 02/01/23 11:56 02/01/23 11:56 Labs: Lab Results 02/01/23 02/01/23 02/01/23 Range/Units 11:56 11:56 11:56 WBC 11.9 H (4.8-10.8) X10*3/uL RBC 4.51 (4.20-5.50) X10*6/uL Hgb 14.0 (12.0-16.0) g/dl Hct 41.9 (37.0-47.0) % MCV 92.9 (80.0-98.0) fL MCH 31.0 (27.0-33.0) pg MCHC 33.4 (31.0-35.0) g/dl RDW 12.3 (11.0-16.0) % Plt Count 292 (160-400) X10*3/uL MPV 10.5 (9.4-12.3) fL Immature Gran % (Auto) 0.3 (0.0-0.4) % Neut % (Auto) 77.4 H (45-73) % Lymph % (Auto) 17.0 L (20-40) % [place] % (Auto) 4.7 (2-11) % Eos % (Auto) 0.3 (0-4) % Baso % (Auto) 0.3 (0-2) % Lymph # (Auto) 2.0 (1.2-4.9) X10*3/uL [place] # (Auto) 0.6 (0.1-1.2) X10*3/uL Eos # (Auto) 0.0 (0.0-0.4) X10*3/uL Baso # (Auto) 0.0 (0.0-0.2) X10*3/uL Abs Immat Gran (auto) 0.04 H (0.00-0.03) X10*3/uL Absolute Neuts (auto) 9.2 H (2.0-8.3) x10*3/uL Absolute Nucleated RBC 0.000 (0.0-0.012) X10*3/uL Nucleated RBC % (auto) 0.0 (0.0-0.2) /100WBC Sodium 141 (135-145) mmol/L Potassium 4.7 (3.3-5.1) mmol/L Chloride 109 H (96-108) mmol/L Carbon Dioxide 22 (22-29) mmol/L Anion Gap 15 (12-20) BUN 11 (9-16) mg/dL Creatinine 0.72 (0.5-1.4) mg/dL Estim Creat Clear Calc 90.1 Estimated GFR > 60 Random Glucose 95 (60-115) mg/dL Calcium 10.4 H D (8.4-10.2) mg/dL Magnesium 2.3 (1.6-2.6) mg/dL Total Bilirubin 0.5 (0.0-1.0) mg/dL AST 16 (5-31) U/L ALT 21 (0-31) U/L Alkaline Phosphatase 56 (39-117) U/L Total Protein 7.7 (6.5-8.0) g/dL Albumin 4.6 (3.5-5.0) g/dL Lipase 22 (8-78) U/L Urine Color Yellow Urine Appearance Clear Urine pH 6.5 (5.0-9.0) Ur Specific [place] 1.015 (1.005-1.025) Urine Protein Negative (Neg-Trace) mg/dL Urine Glucose (UA) Negative (Negative) mg/dL Urine Ketones Negative (Negative) mg/dL Urine Blood Negative (Negative) Urine Nitrite Negative (Negative) Ur Leukocyte Esterase Negative (Negative) Urine RBC 0-2 (0-2) /HPF Urine WBC 0-5 (0-5) /HPF Ur Squamous Epith Cells 3-5 (0-2) /HPF Urine Bacteria Trace (None Seen) Hyaline Casts 0-2 (0-2) /LPF External Record Review External record reviewed: Inpatient record Core Measures AMI core measures followed: Yes Discharge Plan Discharge Clinical Impression: Nausea, Upper abdominal pain, Dehydration Patient Disposition: Home, Self-Care Instructions: Dehydration (ED), Acute Nausea and Vomiting (ED), Abdominal Pain (ED) Additional Instructions: He was seen today in emergency department for abdominal pain and diarrhea 5 days ago as well as some nausea. You had labs done which were all normal. There is some benign exam I do not think this has a surgical issue. Get worsening pain nausea vomiting lost all medications please return to emergency department. Prescriptions: New ondansetron 4 mg tablet,disintegrating 4 mg PO Q6H Qty: 14 0RF No Action pantoprazole 40 mg tablet,delayed release (DR/EC) 40 mg PO DAILY 28 Days Qty: 28 1RF ibuprofen 600 mg tablet 600 mg PO Q6H PRN (Reason: fever or pain) Qty: 20 0RF ondansetron 4 mg tablet,disintegrating 4 mg PO Q6H PRN (Reason: nausea and vomiting) Qty: 10 0RF metoclopramide HCl [Reglan] 10 mg tablet 10 mg PO Q6H PRN (Reason: nausea and vomiting) Qty: 14 0RF cyclobenzaprine 10 mg tablet 10 mg PO BEDTIME 10 Days Qty: 10 0RF Rx Instructions: can cause drowsiness
[2023-02-01 12:19] LABS: Alanine Aminotransferase 21 U/L (0-31); Albumin Level 4.6 g/dL (3.5-5.0); Alkaline Phosphatase 56 U/L (39-117); Anion Gap 15 (12-20); Aspartate Amino Transferase 16 U/L (5-31); Bilirubin Total 0.5 mg/dL (0.0-1.0); Blood Urea Nitrogen 11 mg/dL (9-16); Calcium 10.4 mg/dL (8.4-10.2); Carbon Dioxide 22 mmol/L (22-29); Chloride 109 mmol/L (96-108); Creatinine Clr Calc Pharmacy 90.1; Estimated Glomerular Filt Rate > 60; Glucose Random 95 mg/dL (60-115); Lipase 22 U/L (8-78); Magnesium 2.3 mg/dL (1.6-2.6); Potassium 4.7 mmol/L (3.3-5.1); Sodium 141 mmol/L (135-145); Total Protein 7.7 g/dL (6.5-8.0)
[2023-02-01 14:34] VITALS: BP 106/79; PULSE 60; TEMP 36.8; O2SAT 100
--- NOTE | 2023-02-01 14:54 | PC.NURSE ---
pt a&ox3, respirations equal and non labored. skin warm pink and dry. abdomen soft non tender with active bowel sounds in all 4 quadrants. pt reporting nausea with no vomiting with diarrhea this morning. pt requesting test.
[2023-02-01 15:37] VITALS: BP 117/73
== END 2023-02-01 15:37 | disposition home or self-care (01) ==
PROVIDERS: Physician Assistant; Emergency Provider Student in an Organized Health Care Education/Training Program
DX: R11.2 Nausea with vomiting, unspecified (principal); R10.10 Upper abdominal pain, unspecified; E86.0 Dehydration; Z79.899 Other long term (current) drug therapy
CPT/HCPCS: 36415; 80053; 81001; 81025; 83690; 83735; 85025; 99283; 99284

== ENCOUNTER 2023-06-29 14:29 | Emergency (ER) | payer OTHER, SELFPAY ==
--- NOTE | ~2023-06-29 | US_ITS ---
EXAMINATION: US ABDOMEN LIMITED CLINICAL INFORMATION: Right upper quadrant pain. COMPARISON: None available. TECHNIQUE: Real-time imaging of the gallbladder only. FINDINGS: GALLBLADDER: Normal. The gallbladder is physiologically distended without evidence of stones, sludge, polyps, wall thickening or pericholecystic fluid. COMMON BILE DUCT: Normal in caliber measuring 0.2 cm in diameter. US/US abdomen limited IMPRESSION: Normal gallbladder.
[2023-06-29 14:38] VITALS: BP 156/87; PULSE 102; RESP 20; TEMP 36.6; O2SAT 100; BMI 20.8
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
[2023-06-29 15:09] LABS: MANUAL DIFF FLAG NO
[2023-06-29 15:11] LABS: Basophils Absolute Auto 0.1 X10*3/uL (0.0-0.2); Basophils Percent Auto 0.6 % (0-2); Eosinophils Percent Auto 0.2 % (0-4); Hematocrit 42.3 % (37.0-47.0); Hemoglobin 14.3 g/dl (12.0-16.0); Imm Gran Abs Auto 0.03 X10*3/uL (0.00-0.03); Imm Gran Pct Auto 0.3 % (0.0-0.4); Lymphocytes Absolute Auto 2.2 X10*3/uL (1.2-4.9); Lymphocytes Percent Auto 20.8 % (20-40); Mean Corpuscular HGB Conc 33.8 g/dl (31.0-35.0); Mean Corpuscular Hemoglobin 31.2 pg (27.0-33.0); Mean Corpuscular Volume 92.2 fL (80.0-98.0); Mean Platelet Volume 10.3 fL (9.4-12.3); Monocytes Absolute Auto 0.5 X10*3/uL (0.1-1.2); Monocytes Percent Auto 4.3 % (2-11); Neutrophils Absolute Auto 7.8 x10*3/uL (2.0-8.3); Neutrophils Percent Auto 73.8 % (45-73); Platelet Count 299 X10*3/uL (160-400); Red Blood Count 4.59 X10*6/uL (4.20-5.50); Red Cell Distribution Width 12.5 % (11.0-16.0); White Blood Count 10.6 X10*3/uL (4.8-10.8)
[2023-06-29 15:24] LABS: Appearance Urine Clear; Color Urine Yellow; Glucose Urine UA Negative (Negative); Leukocyte Esterase Urine Negative (Negative); Nitrite Urine Negative (Negative); PH 6.5 (5.0-9.0); Specific Gravity - Urine <= 1.005 (1.005-1.025); Urine Blood Negative (Negative); Urine Ketones Negative (Negative); Urine Protein Negative (Neg-Trace)
[2023-06-29 15:33] LABS: Alanine Aminotransferase 28 U/L (0-31); Albumin Level 4.7 g/dL (3.5-5.0); Alkaline Phosphatase 76 U/L (39-117); Anion Gap 12 (12-20); Aspartate Amino Transferase 17 U/L (5-31); Bilirubin Total 0.5 mg/dL (0.0-1.0); Blood Urea Nitrogen 8 mg/dL (9-16); Carbon Dioxide 26 mmol/L (22-29); Chloride 105 mmol/L (96-108); Creatinine Clr Calc Pharmacy 84.7; Estimated Glomerular Filt Rate > 60; Glucose Random 103 mg/dL (60-115); HCG Quantitative < 2 mIU/mL; Potassium 4.2 mmol/L (3.3-5.1); Sodium 139 mmol/L (135-145); Total Protein 7.7 g/dL (6.5-8.0)
[2023-06-29 22:18] VITALS: BP 130/78; PULSE 68; RESP 18; TEMP 36.8; O2SAT 98
[2023-06-29 23:07] LABS: Lipase 21 U/L (8-78)
[2023-06-29] MEDS: Omeprazole 20 MG CAPSULE.DR PO (23:15)
== END 2023-06-29 23:28 | disposition home or self-care (01) ==
PROVIDERS: Registered Nurse Emergency; Emergency Provider Emergency Medicine; PCP Internal Medicine
DX: R10.13 Epigastric pain (principal); R11.2 Nausea with vomiting, unspecified; F17.210 Nicotine dependence, cigarettes, uncomplicated; Z79.899 Other long term (current) drug therapy; Z71.6 Tobacco abuse counseling
CPT/HCPCS: 36415; 76705; 80053; 81003; 83690; 84702; 85025; 99284

== ENCOUNTER 2023-08-19 18:42 | Emergency (ER) | payer MEDICAID, SELFPAY ==
[2023-08-19 19:28] VITALS: BP 127/94; PULSE 88; RESP 16; TEMP 36; O2SAT 99; BMI 21.8
[2023-08-19 20:47] LABS: COVID-19 Test Negative (Negative); IDNOW Serial# 08D9AD1C
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
[2023-08-19] MEDS: Ibuprofen 600 MG TABLET PO (22:19)
[2023-08-19] MEDS: Benzonatate 100 MG CAPSULE 200 MG PO (22:19)
== END 2023-08-19 22:29 | disposition home or self-care (01) ==
PROVIDERS: Emergency Provider Internal Medicine; PCP Internal Medicine
DX: U07.1 COVID-19 (principal); R05.9 Cough, unspecified; M79.10 Myalgia, unspecified site; F17.210 Nicotine dependence, cigarettes, uncomplicated
CPT/HCPCS: 87635; 99283

== ENCOUNTER 2023-08-24 14:07 | Outpatient (REF) | payer MEDICAID, SELFPAY ==
[2023-08-24 14:52] LABS: Influenza A PCR NEGATIVE (Negative); Influenza B PCR NEGATIVE (Negative); Resp Syncy Virus RNA Qual PCR NEGATIVE (Negative); SARS COV2 PCR INHOUSE POSITIVE (Negative)
== END 2023-08-24 14:08 | disposition home or self-care (01) ==
LOC: HO.LNP 14:07
PROVIDERS: Visit Provider Internal Medicine
DX: R05.9 Cough, unspecified (principal); Z11.52 Encounter for screening for COVID-19
CPT/HCPCS: 0241U

== ENCOUNTER 2023-09-04 12:45 | Emergency (ER) | payer OTHER, SELFPAY ==
--- NOTE | ~2023-09-04 | XR_ITS ---
EXAMINATION: XR CHEST CLINICAL INFORMATION: Shortness of breath COMPARISON: None available. TECHNIQUE: 2 views of the chest were obtained. FINDINGS: The lungs are well-expanded and clear. Heart size and pulmonary vascularity is normal. No gross bony abnormality seen. XR/XR chest 2V IMPRESSION: Unremarkable chest exam.
[2023-09-04 12:51] VITALS: BP 122/87; PULSE 94; RESP 20; TEMP 36.4; O2SAT 97; BMI 20.5
--- NOTE | 2023-09-04 12:51 | ED_ITS ---
HPI - SOB/Dyspnea General Chief Complaint: General Medical Stated Complaint: Diff breathing Time Seen by Provider: 09/04/23 13:35 Source: patient Mode of arrival: ambulatory Limitations: no limitations History of Present Illness HPI Narrative: Patient is a 38 year old assigned female at with no reported medical history presenting to the emergency department today with epigastric pain. Patient states that over the last few weeks she has continued to have epigastric pain. Patient states that she was seen by a doctor before who told her that her gallbladder may be an issue and to get it checked out but she hasn't. Patient states that omprazole works for the pain but she isn't taking it like she should be. Patient denies any dizziness, lightheadedness, nausea, vomiting, fever, chills, blurry vision, double vision, loss of vision, chest pain, difficulty breathing, shortness of breath, back pain, night sweats, pain with urination, increased urinary frequency, increased urinary urgency, blood in her urine or stool, syncope or a near syncopal episode, recent trauma or falls, bowel incontinence, bladder incontinence, bowel retention, bladder retention, or any other complaints at this time. Onset (ago): week(s) Treatment prior to arrival: none Related Data Previous Rx's Medication Instructions Recorded cyclobenzaprine 10 mg tablet 10 mg PO BEDTIME 10 days #10 tabs 03/24/22 ibuprofen 600 mg tablet 600 mg PO Q6H PRN fever or pain 06/17/22 #20 tabs pantoprazole 40 mg tablet,delayed 40 mg PO DAILY 4 weeks #28 tabs 07/30/22 release ondansetron 4 mg disintegrating 4 mg PO Q6H PRN nausea and 09/23/22 tablet vomiting #10 tabs metoclopramide HCl 10 mg tablet 10 mg PO Q6H PRN nausea and 11/18/22 (Reglan) vomiting #14 tabs ondansetron 4 mg disintegrating 4 mg PO Q6H #14 tabs 02/01/23 tablet omeprazole 40 mg capsule,delayed 40 mg PO DAILY #30 caps 06/29/23 release ondansetron 4 mg disintegrating 4 mg PO Q8H PRN nausea and 06/29/23 tablet vomiting #20 tabs benzonatate 200 mg capsule 200 mg PO TID PRN cough #30 caps 08/19/23 ibuprofen 600 mg tablet 600 mg PO Q6H PRN fever or pain 08/19/23 #30 tabs omeprazole 20 mg capsule,delayed 20 mg PO DAILY #14 caps 09/04/23 release Allergies Allergy/AdvReac Type Severity Reaction Status Date / Time No Known Allergies Allergy Verified 09/04/23 12:54 Review of Systems 2 Constitutional: Constitutional: Reports no additional constitutional complaints, Denies chills, Denies fever(s) and Denies night sweats Eyes: Eyes: Reports no additional eye complaints, Denies blurry vision, Denies change in vision, Denies diplopia, Denies eye discharge, Denies loss of vision and Denies eye pain ENT: Denies dizziness Cardiovascular: Cardiovascular: Reports no additional cardiovascular complaints, Denies chest pain, Denies lightheadedness, Denies Loss of Consciousness and Denies dyspnea Respiratory: Respiratory: Reports no additional respiratory complaints and Denies dyspnea Gastrointestinal: Gastrointestinal: Reports no additional gastrointestinal complaints, Reports abdominal pain, Denies melena, Denies hematochezia, Denies change in bowel habits and Denies change in stool character Genitourinary: Genitourinary: Denies hematuria, Denies urinary frequency, Denies dysuria, Denies urinary incontinence, Denies urinary hesitancy and Denies urinary urgency Musculoskeletal: Musculoskeletal: Reports no additional musculoskeletal complaints, Denies numbness and Denies tingling Neurologic: Denies dizziness, Denies loss of vision, Denies numbness and Denies tingling Psychiatric: Psychiatric: Reports no additional psychiatric complaints Endocrine: Endocrine: Reports no additional endocrine complaints Hematologic/Lymphatic: Hematologic/Lymphatic: Reports no additional hematologic/lymphatic complaints Allergic/Immunologic: Allergic/Immunologic: Reports no additional allergic/immunologic complaints [facility] Past Medical History Attestation statement: The following information was validated with the patient. Source: old records reviewed and nursing notes reviewed Medical History Acute epigastric pain COVID-19 COVID-19 Female pelvic pain Dyspepsia Nausea Upper abdominal pain Retained products of conception not following Acid reflux Surgical History Hx of dilation and curettage Social History Social History Alcohol intake: never Patient Tobacco Use Status: Current everyday Tobacco user Tobacco use type: Cigarette Cigarette Packs Per Day: 1 Cigarettes Per Day: 20.0 Advance Directives: No Advance Directives Information Provided: No Physical Exam 2 Vital Signs: Vital Signs: Last Vital Signs Temp 97.6 F 09/04/23 12:51 Pulse 94 09/04/23 12:51 Resp 20 09/04/23 12:51 BP 122/87 09/04/23 12:51 Pulse Ox 97 09/04/23 12:51 O2 Del Method Room Air 09/04/23 12:51 BMI result Body Mass Index 20.5 Const: General: cooperative, no acute distress, alert and awake Nutritional Appearance: well nourished Orientation/consciousness: patient oriented x3 Limitations: no limitations HEENT: Head: Yes normal to inspection and Yes atraumatic Ears: hearing grossly normal bilaterally and external ears normal General nose exam: Normal external nose present, no nasal discharge noted and no epistaxis Face and sinus: Yes normal facial exam, No abrasion and No laceration Mouth: Normal oral and palatal mucosa present, no drooling and no muffled voice Eyes: General: appearance normal, both eyes and all related structures P eriorbital: periorbital findings normal Eyelids: Yes eyelids normal C onjunctivae: conjunctivae normal Pupils: Equal, round and reactive pupils present EOM: EOMs intact bilaterally Neck: Neck: Yes normal visual inspection, Yes full ROM and Yes no lymphadenopathy Chest: Chest palpation & inspection: normal inspection of the chest Resp: Effort & Inspection: normal respiratory effort and able to speak in complete sentences Auscultation: clear to auscultation bilaterally Cardio: Rate: regular rate Rhythm: regular rhythm GI: Inspection: Yes normal to inspection Palpation (GI): Soft to palpation, not firm, nontender and no guarding Neuro: General: patient oriented x3 and moves all extremities Cranial nerves: Yes Equal, round and reactive pupils present Cognition (Neuro): n ormal cognition Motor exam (neuro): 5/5 motor strength present throughout Sensory Exam: Normal double simultaneous stimulation for sensation C oordination: [id number] test normal Extrem: General: Yes normal to inspection, Yes full ROM and Yes capillary refill normal Psych: Appearance: grossly normal Mental Status: mental status grossly normal Affect: normal affect Attitude: cooperative Thought process: N ormal thought process present Thought content: Normal thought content present Insight: Good insight present (Psych) Course Course Course Narrative: This is an RME: Additional HPI, ROS, PE not included below will be deferred to primary provider. Patient is a 38-year-old female who presents to the emergency department for evaluation of difficulty breathing. Reports COVID-19 infection 2-3 weeks ago. Reports resolution of symptoms. She states that since yesterday afternoon she began feeling shortness of breath, this started after she was eating lunch. Discontinue throughout the day. She awoke today still having a sensation of difficulty breathing, denies any pain, nausea, or vomiting. Plan: labs, CXR Medical Decision Making Medical Decision Making MDM Narrative: Patient is a 38 year old assigned female at with no reported medical history presenting to the emergency department today with epigastric pain. Patient's physical exam was unremarkable. Patient's blood work was unremarkable. Patient's chest x-ray showed no acute process. I explained my physical exam findings as well as all test results to the patient. I answered all questions asked by the patient. I stressed the importance of the patient taking her medication as prescribed. I stressed the importance of the patient following up with her primary care provider. I stressed the importance of the patient returning to the emergency department immediately if her symptoms were to worsen or if she were to develop any dizziness, shortness of breath, difficulty breathing, chest pain, blurry vision, loss of vision, nausea, vomiting, abdominal pain, fever, chills, back pain, or any other complaints. Patient verbalized agreement and understanding with this treatment plan and discharge. Differential Diagnosis Differential Diagnoses: The differential diagnosis associated with the presentation includes Epigastric pain GERD Abdominal pain Admission/Observation Consideration of admission/observation: Escalation of care including admission/observation considered Patient would have been admitted to the hospital had her work up had any findings where hospital admission was appropriate and her clinical presentation warranted hospital admission. Lab Data [facility] Lab Attestation statement: I reviewed the patient's lab results. My interpretation of these results are in the [facility] Rationale portion of this note. 09/04/23 14:08 09/04/23 14:08 Labs: Lab Results 09/04/23 Range/Units 14:08 WBC 10.3 (4.8-10.8) X10*3/uL RBC 4.42 (4.20-5.50) X10*6/uL Hgb 13.8 (12.0-16.0) g/dl Hct 40.2 (37.0-47.0) % MCV 91.0 (80.0-98.0) fL MCH 31.2 (27.0-33.0) pg MCHC 34.3 (31.0-35.0) g/dl RDW 12.2 (11.0-16.0) % Plt Count 319 (160-400) X10*3/uL MPV 10.2 (9.4-12.3) fL Immature Gran % (Auto) 0.3 (0.0-0.4) % Neut % (Auto) 72.6 (45-73) % Lymph % (Auto) 20.3 (20-40) % Gregory % (Auto) 5.6 (2-11) % Eos % (Auto) 0.8 (0-4) % Baso % (Auto) 0.4 (0-2) % Lymph # (Auto) 2.1 (1.2-4.9) X10*3/uL Gregory # (Auto) 0.6 (0.1-1.2) X10*3/uL Eos # (Auto) 0.1 (0.0-0.4) X10*3/uL Baso # (Auto) 0.0 (0.0-0.2) X10*3/uL Abs Immat Gran (auto) 0.03 (0.00-0.03) X10*3/uL Absolute Neuts (auto) 7.5 (2.0-8.3) x10*3/uL Absolute Nucleated RBC 0.000 (0.0-0.012) X10*3/uL Nucleated RBC % (auto) 0.0 (0.0-0.2) /100WBC PT 11.5 (11.1-13.3) SEC INR 0.9 (0.9-1.1) Sodium 136 (135-145) mmol/L Potassium 4.1 (3.3-5.1) mmol/L Chloride 105 (96-108) mmol/L Carbon Dioxide 25 (22-29) mmol/L Anion Gap 10 L (12-20) BUN 11 (9-16) mg/dL Creatinine 0.76 (0.5-1.4) mg/dL Estim Creat Clear Calc 90.4 Estimated GFR > 60 Random Glucose 93 (60-115) mg/dL Calcium 9.6 (8.4-10.2) mg/dL Total Bilirubin 0.3 (0.0-1.0) mg/dL AST 27 (5-31) U/L ALT 42 H (0-31) U/L Alkaline Phosphatase 98 (39-117) U/L Total Protein 7.6 (6.5-8.0) g/dL Albumin 4.4 (3.5-5.0) g/dL COVID-19 ([facility]) Negative (Negative) COVID-19 Clin Com See Note Influenza Type A (TOM) Negative (Negative) Influenza Type B (TOM) Negative (Negative) Influenza A & B Note See Note Independent Interpretation I performed an independent interpretation of an: Plain X-Ray Interpretation: My interpretation is in agreement with the radiologist's impression of this imaging study. - EXAMINATION: XR CHEST CLINICAL INFORMATION: Shortness of breath COMPARISON: None available. TECHNIQUE: 2 views of the chest were obtained. FINDINGS: The lungs are well-expanded and clear. Heart size and pulmonary vascularity is normal. No gross bony abnormality seen. XR/XR chest 2V IMPRESSION: Unremarkable chest exam. Dictated By: Neville Daniels MD Signed By: Electronically signed by Neville Daniels MD 09/04/23 9103 Radiology Impression Discussion of test interpretation with radiology: I have reviewed the radiologist's reading. Discharge Plan Discharge Clinical Impression: Acute epigastric pain Patient Disposition: Home, Self-Care Instructions: Epigastric Pain (ED) Additional Instructions: Follow up with your primary care provider. Return to the emergency department immediately if your symptoms worsen or if you develop any dizziness, shortness of breath, difficulty breathing, chest pain, blurry vision, loss of vision, nausea, vomiting, abdominal pain, fever, chills, back pain, or any other complaints. Prescriptions: New omeprazole 20 mg capsule,delayed release(DR/EC) 20 mg PO DAILY Qty: 14 0RF No Action pantoprazole 40 mg tablet,delayed release (DR/EC) 40 mg PO DAILY 28 Days Qty: 28 1RF ibuprofen 600 mg tablet 600 mg PO Q6H PRN (Reason: fever or pain) Qty: 20 0RF ondansetron 4 mg tablet,disintegrating 4 mg PO Q6H PRN (Reason: nausea and vomiting) Qty: 10 0RF omeprazole 40 mg capsule,delayed release(DR/EC) 40 mg PO DAILY Qty: 30 0RF ondansetron 4 mg tablet,disintegrating 4 mg PO Q8H PRN (Reason: nausea and vomiting) Qty: 20 0RF benzonatate 200 mg capsule 200 mg PO TID PRN (Reason: cough) Qty: 30 0RF ibuprofen 600 mg tablet 600 mg PO Q6H PRN (Reason: fever or pain) Qty: 30 0RF metoclopramide HCl [Reglan] 10 mg tablet 10 mg PO Q6H PRN (Reason: nausea and vomiting) Qty: 14 0RF ondansetron 4 mg tablet,disintegrating 4 mg PO Q6H Qty: 14 0RF cyclobenzaprine 10 mg tablet 10 mg PO BEDTIME 10 Days Qty: 10 0RF Rx Instructions: can cause drowsiness Referrals: Donavan Arroyo MD [Primary Care Provider] - Interventions: ED Discharge Assessment Last Done: 09/04/23 14:58 Discharge Date/Time: 09/04/23 14:59 Print Language: Albanian
[2023-09-04 14:25] LABS: Basophils Percent Auto 0.4 % (0-2); Eosinophils Absolute Auto 0.1 X10*3/uL (0.0-0.4); Eosinophils Percent Auto 0.8 % (0-4); Hematocrit 40.2 % (37.0-47.0); Hemoglobin 13.8 g/dl (12.0-16.0); Imm Gran Abs Auto 0.03 X10*3/uL (0.00-0.03); Imm Gran Pct Auto 0.3 % (0.0-0.4); Lymphocytes Absolute Auto 2.1 X10*3/uL (1.2-4.9); Lymphocytes Percent Auto 20.3 % (20-40); Mean Corpuscular HGB Conc 34.3 g/dl (31.0-35.0); Mean Corpuscular Hemoglobin 31.2 pg (27.0-33.0); Mean Platelet Volume 10.2 fL (9.4-12.3); Monocytes Absolute Auto 0.6 X10*3/uL (0.1-1.2); Monocytes Percent Auto 5.6 % (2-11); Neutrophils Absolute Auto 7.5 x10*3/uL (2.0-8.3); Neutrophils Percent Auto 72.6 % (45-73); Platelet Count 319 X10*3/uL (160-400); Red Blood Count 4.42 X10*6/uL (4.20-5.50); Red Cell Distribution Width 12.2 % (11.0-16.0); White Blood Count 10.3 X10*3/uL (4.8-10.8)
[2023-09-04 14:28] LABS: Alanine Aminotransferase 42 U/L (0-31); Albumin Level 4.4 g/dL (3.5-5.0); Alkaline Phosphatase 98 U/L (39-117); Anion Gap 10 (12-20); Aspartate Amino Transferase 27 U/L (5-31); Bilirubin Total 0.3 mg/dL (0.0-1.0); Blood Urea Nitrogen 11 mg/dL (9-16); Calcium 9.6 mg/dL (8.4-10.2); Carbon Dioxide 25 mmol/L (22-29); Chloride 105 mmol/L (96-108); Creatinine Clr Calc Pharmacy 90.4; Estimated Glomerular Filt Rate > 60; Glucose Random 93 mg/dL (60-115); Potassium 4.1 mmol/L (3.3-5.1); Sodium 136 mmol/L (135-145); Total Protein 7.6 g/dL (6.5-8.0)
[2023-09-04 14:29] LABS: COVID-19 Test Negative (Negative); IDNOW Serial# 58CA691E; IDNOW Serial# 9DB6401D; Influenza A Negative (Negative); Influenza B2 Negative (Negative)
[2023-09-04 14:30] LABS: INTERNATIONAL NORM RATIO 0.9 (0.9-1.1); Prothrombin Time 11.5 SEC (11.1-13.3)
== END 2023-09-04 14:59 | disposition home or self-care (01) ==
PROVIDERS: Nurse Practitioner Family; Emergency Provider Emergency Medicine; PCP Internal Medicine
DX: R10.13 Epigastric pain (principal); Z11.52 Encounter for screening for COVID-19; R06.02 Shortness of breath; F17.210 Nicotine dependence, cigarettes, uncomplicated
CPT/HCPCS: 71046; 80053; 85025; 85610; 87502; 87635; 99282; 99283

== ENCOUNTER 2024-07-27 16:28 | Emergency (ER) | payer OTHER, SELFPAY ==
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
[2024-07-27 16:31] VITALS: BP 149/93; PULSE 100; RESP 19; TEMP 36.6; O2SAT 100; BMI 26.4
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
[2024-07-27 19:12] VITALS: BP 149/88; PULSE 62; RESP 16; O2SAT 99
[2024-07-27 19:40] VITALS: BP 142/96; PULSE 79; RESP 18; TEMP 36.9; O2SAT 99
[2024-07-27 19:57] VITALS: BP 142/96; PULSE 79; RESP 18; TEMP 36.9; O2SAT 99
== END 2024-07-27 19:58 | disposition home or self-care (01) ==
PROVIDERS: Emergency Provider Emergency Medicine
DX: S29.9XXA Unspecified injury of thorax, initial encounter (principal); S39.92XA Unspecified injury of lower back, initial encounter; V43.52XA Car driver injured in collision with other type car in traffic accident, initial encounter; Y93.89 Activity, other specified; Y92.488 Other paved roadways as the place of occurrence of the external cause; Y99.8 Other external cause status; F17.210 Nicotine dependence, cigarettes, uncomplicated
CPT/HCPCS: 72072; 99283

== ENCOUNTER → 2024-07-27 16:37 | Outpatient (BNV) | payer OTHER, SELFPAY | PROVIDERS: Visit Provider Radiology Diagnostic Radiology | DX: M54.6 Pain in thoracic spine (principal); Z04.3 Encounter for examination and observation following other accident | CPT/HCPCS: 72072 ==